=== PATIENT | male | born 1945 | race Caucasian/White ===

== ENCOUNTER 2019-09-29 00:25 | Outpatient (CLI) | payer MEDICARE, SELFPAY ==
[2019-09-30 00:19] LABS: SARS-CoV-2 RNA PCR Negative
== END 2019-09-29 00:26 | disposition home or self-care (01) ==
LOC: ANHCOVIDDT 00:25
PROVIDERS: PCP Family Medicine; Visit Provider Internal Medicine Gastroenterology
DX: Z20.828 Contact with and (suspected) exposure to other viral communicable diseases (principal)
CPT/HCPCS: 87635; C9803; U0003

== ENCOUNTER 2019-10-02 02:11 | Day surgery (SDC) | payer MEDICARE, SELFPAY ==
[2019-10-02 08:05] VITALS: BP 107/77; PULSE 60; RESP 18; TEMP 37.3; O2SAT 98; BMI 24.5
[2019-10-02] MEDS: LACTATED RINGERS 1,000 ML 150 ML IV CONT (08:15)
[2019-10-02 08:22] LABS: Glucose Point of Care 161 (65-105)
--- NOTE | 2019-10-02 08:33 | WPDGICN ---
Assessment and Plan Assessment and plan (1) Heartburn: Code(s): R12 - Heartburn Status: Acute (2) GERD (gastroesophageal reflux disease): Code(s): K21.9 - Gastro-esophageal reflux disease without esophagitis Status: Acute Assessment and Plan: Patient has chronic GE reflux disease plan is for EGD today because of ongoing symptoms of poor response disease therapy. (3) History of rectal cancer: Code(s): Z85.048 - Personal history of other malignant neoplasm of rectum, rectosigmoid junction, and anus Status: Acute Assessment and Plan: Colonoscopy advised at 3-5 year intervals. GI Consult Note Consult date/time: 10/02/19 08:33 HPI: Shane Pacheco is a 74 year old male seen in evaluation at the request of Dr Alvarez. Patient has a 2 year history of substernal heartburn. Particularly worse after eating spicy or acidic foods. He notices nocturnal regurgitation. Currently he takes Tums for relief of symptoms. He denies any dysphagia. He denies any bleeding. He denies any weight loss. Patient presents today for EGD because of ongoing symptoms. Past medical history is significant for colon cancer he is status post partial colectomy and has a colostomy in the left lower quadrant. This has been present 6 years ago. Additional past history is significant for diabetes mellitus. He has a history of atherosclerotic heart disease and stent placement for which she is on Plavix. Review of Systems Review of Systems: All systems reviewed & are unremarkable except as noted in HPI and below Meds Home Medications and Allergies Home Medications Medication Instructions Recorded Confirmed Type atorvastatin 10 mg PO DAILY 09/25/19 09/25/19 History carvedilol 12.5 mg PO DAILY 09/25/19 10/02/19 History clopidogrel 75 mg PO DAILY 09/25/19 10/02/19 History glipizide 5 mg PO DAILY 09/25/19 10/02/19 History losartan 100 mg PO DAILY 09/25/19 10/02/19 History metformin 1,000 mg PO BID 09/25/19 10/02/19 History sertraline 50 mg PO DAILY 09/25/19 10/02/19 History theophylline 400 mg PO DAILY 09/25/19 10/02/19 History Allergies Allergy/AdvReac Type Severity Reaction Status Date / Time aloe vera Allergy Intermediate Other Unverified 10/02/19 08:03 Vital Signs Vital Signs - 24 hr 10/02/19 08:05 Temperature 99.1 F Pulse Rate 60 Respiratory Rate 18 Blood Pressure 107/77 Pulse Oximetry 98 Exam Narrative: Exam Narrative: Physical exam reveals patient to be alert. Vital signs stable. HEENT exam unremarkable. Lungs are clear to auscultation and percussion. Heart is without murmur or extra sounds. Abdominal exam bowel sounds are present soft nontender with no hepatosplenomegaly. Colostomy site appears well healed.
--- NOTE | 2019-10-02 08:34 | WPDANESEPPF ---
Anes - Initial Pre Proc Eval Procedure: Operation Date: 10/02/19 09:00 Proposed Procedures p Esophagogastroduodenoscopy - Ehsan Allen MD Date/Time: 10/02/19 08:34 Surgeon: Ehsan Allen MD Pre Op Diagnosis: Heart Burn/ Anemia Patient Data Age: 74 Gender: M Height: 5 ft 6 in Weight: 69 kg Last Vital Signs Temp 37.3 C 10/02/19 08:05 Pulse 60 10/02/19 08:05 Resp 18 10/02/19 08:05 BP 107/77 10/02/19 08:05 Pulse Ox 98 10/02/19 08:05 Allergies Allergy/AdvReac Type Severity Reaction Status Date / Time aloe vera Allergy Intermediate Other Unverified 10/02/19 08:03 Home Medications Medication Instructions Recorded Confirmed Type atorvastatin 10 mg PO DAILY 09/25/19 09/25/19 History carvedilol 12.5 mg PO DAILY 09/25/19 10/02/19 History clopidogrel 75 mg PO DAILY 09/25/19 10/02/19 History glipizide 5 mg PO DAILY 09/25/19 10/02/19 History losartan 100 mg PO DAILY 09/25/19 10/02/19 History metformin 1,000 mg PO BID 09/25/19 10/02/19 History sertraline 50 mg PO DAILY 09/25/19 10/02/19 History theophylline 400 mg PO DAILY 09/25/19 10/02/19 History Laboratory Tests 10/02/19 08:18 POC Capillary Glucose 161 mg/dl H mg/dl (65-105) Patient hx anesthesia problems: none Family hx anesthesia problems: none Anes - Eval Final PreProcedure Day of Procedure 10/02/19 08:34 Patient weight: overweight Heart: regular rate and rhythm Lungs: clear to auscultation Airway: Mallampati scale class II Neurological: alert and oriented Last oral intake: >/= 8 hours ASA classification: III Emergent: no Anesthetic plan: proceed Anesthesia type and monitoring: general GIVS and standard monitoring Informed Consent: The patient's anesthetic plan and its attendant risks and benefits were discussed with the patient/family/POA. Questions were solicited and answers provided to the satisfaction of the patient/family/POA.
[2019-10-02] MEDS: BENZOCAINE (*SP) 60 ML SPRAY CAN (HURRICAINE) 1 SPRAY MUCOUS MEM (08:58)
[2019-10-02 09:12] VITALS: BP 79/45; PULSE 53; RESP 14; O2SAT 96
[2019-10-02 09:22] VITALS: BP 96/50; PULSE 53; RESP 16; O2SAT 97
[2019-10-02 09:32] VITALS: BP 125/61; PULSE 59; RESP 17; O2SAT 98
[2019-10-02 09:42] VITALS: BP 142/72; PULSE 55; RESP 15; O2SAT 97
== END 2019-10-02 09:53 | disposition home or self-care (01) ==
PROVIDERS: PCP Family Medicine; Visit Provider Internal Medicine Gastroenterology
PROC: 0DJ08ZZ Inspection of Upper Intestinal Tract, Via Natural or Artificial Opening Endoscopic (ICD-10-PCS; CPT 43235; principal; 2019-10-02 09:00)
DX: K22.70 Barrett's esophagus without dysplasia (principal); K21.9 Gastro-esophageal reflux disease without esophagitis; Z85.048 Personal history of other malignant neoplasm of rectum, rectosigmoid junction, and anus; Z79.02 Long term (current) use of antithrombotics/antiplatelets; Z79.84 Long term (current) use of oral hypoglycemic drugs
CPT/HCPCS: 43239; 88305; J2704; J7120

== ENCOUNTER 2019-11-08 13:17 | Outpatient (CLI) | payer MEDICARE, SELFPAY ==
--- NOTE | ~2019-11-08 | CT_ITS ---
EXAMINATION: CT abdomen pelvis w con EXAM DATE: 11/08/2019 13:55 INDICATION: Abdominal pain. History of colon cancer. TECHNIQUE: Spiral CT of the abdomen and pelvis was performed following intravenous injection of 100 m L Omnipaque 350. Axial, coronal and sagittal images were reviewed. The dose-length product (DLP) fo r this examination was 320.81 mGy-cm. The exposure was tailored according to patient size (auto mA e xposure control), and iterative reconstruction (ASIR) was used as additional dose reduction technique . Comparison is made to prior examination from 01/05/2018. FINDINGS: There is 1.4 cm lesion in the left adrenal gland, unchanged compared to prior examinations, most likely an adenoma given stability. The liver, spleen, adrenal glands and pancreas are otherwis e unremarkable. Gallbladder is moderately distended and there is a partially peripherally calcified 2 cm stone in its neck, which is the dependent portion. No surrounding inflammation, and no interval change compared to prior study. Portal and splenic veins are patent. Kidneys enhance symmetrically. There is no hydronephrosis. The prostate is unremarkable. The bladder is unremarkable. There is no retroperitoneal or pelvic lymphadenopathy. There is moderate scattered arteriosclerotic disease . The appendix is not positively visualized. There is no pericecal inflammatory change to suggest appe ndicitis. There is a 5 cm duodenal diverticulum along its 4th portion. Gordon's pouch, and left l ower quadrant colostomy. Some colonic fluid. No free intraperitoneal gas. The heart is normal in size. There are no pericardial or pleural effusions. The lung bases are unremarkable. There are no osteoblastic or osteolytic lesions identified. IMPRESSION: 1. No acute findings or evidence of metastatic disease. 2. Left adrenal lesion stable, probably adenoma. 3. Large duodenal diverticulum. 4. Cholelithiasis. Reviewed, dictated and finalized at location A.
[2019-11-08 13:47] LABS: Estimated Glomerular Filt Rate > 60
== END 2019-11-08 13:18 | disposition home or self-care (01) ==
PROVIDERS: PCP Family Medicine; Visit Provider Family Medicine
DX: R10.9 Unspecified abdominal pain (principal); Z85.048 Personal history of other malignant neoplasm of rectum, rectosigmoid junction, and anus; K80.20 Calculus of gallbladder without cholecystitis without obstruction; K57.10 Diverticulosis of small intestine without perforation or abscess without bleeding
CPT/HCPCS: 36415; 74177; Q9967

== ENCOUNTER 2020-01-19 12:33 | Outpatient (CLI) | payer MEDICARE, SELFPAY ==
--- NOTE | ~2020-01-19 | MR_ITS ---
EXAMINATION: MR brain/brain stem wo con DATE: 01/19/2020 13:55 INDICATION: Change in mental status. TECHNIQUE: Magnetic resonance imaging (MRI) of the brain and brainstem was performed without intraven ous contrast. Sequences included sagittal and axial T1-weighted FSE, axial diffusion-weighted FS EPI, axial T2*-weighted GRE, axial T2-weighted FLAIR Propeller, and axial T2-weighted Propeller. Apparent diffusion coefficient (ADC) maps were created. COMPARISON: None. FINDINGS: There is no intracranial hemorrhage, acute infarction, or abnormal intracranial mass lesion . There are scattered areas of nonspecific increased T2-weighted signal intensity in the cerebral whi te matter. The ventricles are normal in size. There is mild mucosal thickening in the paranasal sinus es. The orbits are normal. The mastoid air cells are normal. IMPRESSION: 1. Mild nonspecific cerebral white matter disease, which likely represents chronic small vessel ische cash disease. Reviewed, dictated and finalized at location A. IMPRESSION: 1. Mild nonspecific cerebral white matter disease, which likely represents engagement engineer lizette small vessel ischemic disease.
--- NOTE | ~2020-01-19 | XR_ITS ---
EXAMINATION: XR chest 2V DATE: 01/19/2020 13:08 INDICATION: Cough. TECHNIQUE: Frontal and lateral views of the chest were obtained. COMPARISON: Chest 2 views 06/09/2018, CT abdomen and pelvis 11/08/2019 FINDINGS: The chest demonstrates clear lungs without pneumonia, pleural effusion, or pneumothorax. Th e heart size is normal. IMPRESSION: 1. No acute cardiopulmonary disease. Reviewed, dictated and finalized at location A.
[2020-01-19 14:29] LABS: Hematocrit 35.1 % (42.0-52.0); Hemoglobin 11.9 g/dL (14.0-18.0); Mean Corpuscular HGB Conc 33.9 g/dl (32-36); Mean Corpuscular Hemoglobin 33.4 pg (26-34); Mean Corpuscular Volume 98.6 fl (80-100); Platelet Count Result 254 k/mm3 (150-375); Red Blood Count 3.56 M/mm3 (4.6-6.20); Red Cell Distribution Width 12.8 % (11.5-14.5); White Blood Count 9.1 K/mm3 (4.5-10.0)
[2020-01-19 14:46] LABS: Alanine Aminotransferase 20 U/L (4-50); Albumin Level 4.3 g/dL (3.5-5.1); Alkaline Phosphatase 81 U/L (38-126); Anion Gap 11 mmol/L (8-16); Aspartate Amino Transferase 32 U/L (17-59); Bilirubin,Total 0.5 mg/dL (0.2-1.3); Blood Urea Nitrogen 14 mg/dL (9-20); Calcium 9.5 mg/dL (8.4-10.2); Carbon Dioxide 27 mmol/L (22-30); Chloride 101 mmol/L (98-107); Cholesterol 187 mg/dL (0-200); Estimated Glomerular Filt Rate > 60; Glucose 192 mg/dL (75-110); HDL Direct 40 mg/dL; Potassium 5.1 mmol/L (3.4-5.0); Sodium 139 mmol/L (137-145); Triglycerides 304 mg/dL (<150)
[2020-01-19 14:53] LABS: LDL Cholesterol Direct 104 mg/dL
[2020-01-19 15:13] LABS: Prostate Specific Antigen 0.4 ng/mL (< OR = 4.0)
[2020-01-19 15:26] LABS: Vitamin D 25 Hydroxy 29.2 ng/mL
[2020-01-19 15:30] LABS: Hemoglobin A1C 7.8 % (<5.7)
== END 2020-01-19 12:34 | disposition home or self-care (01) ==
PROVIDERS: PCP Family Medicine; Visit Provider Family Medicine
DX: R05 Cough (principal); R41.82 Altered mental status, unspecified; E11.65 Type 2 diabetes mellitus with hyperglycemia; R53.83 Other fatigue; Z12.5 Encounter for screening for malignant neoplasm of prostate; R93.0 Abnormal findings on diagnostic imaging of skull and head, not elsewhere classified; D64.9 Anemia, unspecified
CPT/HCPCS: 36415; 70551; 71046; 80053; 80061; 82306; 82607; 83036; 84153; 84443; 85027; G0103

== ENCOUNTER 2020-04-05 13:46 | Outpatient (CLI) | payer MEDICARE, SELFPAY ==
[2020-04-05 15:19] LABS: Cholesterol 161 mg/dL (0-200); HDL Direct 29 mg/dL; Triglycerides 306 mg/dL (<150)
[2020-04-05 15:30] LABS: LDL Cholesterol Direct 89 mg/dL
[2020-04-05 19:52] LABS: Hemoglobin A1C 7.5 % (<5.7)
== END 2020-04-05 13:47 | disposition home or self-care (01) ==
LOC: ANHLAB 13:48
PROVIDERS: PCP Physician Assistant; Visit Provider Physician Assistant
DX: E78.5 Hyperlipidemia, unspecified (principal); E11.65 Type 2 diabetes mellitus with hyperglycemia; R60.0 Localized edema
CPT/HCPCS: 36415; 80061; 83036

== ENCOUNTER 2020-12-23 14:47 | Emergency (ER) | payer MEDICARE, SELFPAY ==
[2020-12-23 15:00] VITALS: BP 119/77; PULSE 61; RESP 18; TEMP 36.2; O2SAT 98
[2020-12-23 15:06] VITALS: BP 119/77; PULSE 61; RESP 18; TEMP 36.2; O2SAT 98
--- NOTE | 2020-12-23 15:10 | ED.SKABFB ---
HPI - Skin/Abscess/Foreign Bdy General Chief complaint: Skin/Abscess/Foreign Body Stated complaint: Skin Tear Source: patient and RN notes reviewed Limitations: no limitations History of Present Illness HPI narrative: The patient, on several meds including for dementia, presents with skin avulsion. Patient states family members heard the patient to slip, without fall probably involving on home furnishings. He complains of minimal bleeding and discomfort from a left forearm avulsion. No other injury, decreased range of motion, bleeding, deformity; symptoms are mild, better with elevation or compression. thinks tetanus is up-to-date as he has a primary physician. Related Data Home Medications Medication Instructions Recorded Confirmed atorvastatin 10 mg PO DAILY 09/25/19 12/23/20 carvedilol 12.5 mg PO DAILY 09/25/19 12/23/20 clopidogrel 75 mg PO DAILY 09/25/19 12/23/20 losartan 100 mg PO DAILY 09/25/19 12/23/20 metformin 1,000 mg PO BID 09/25/19 12/23/20 sertraline 50 mg PO DAILY 09/25/19 12/23/20 theophylline 400 mg PO DAILY 09/25/19 12/23/20 aspirin 81 mg tablet,delayed 81 mg PO DAILY 10/07/20 12/23/20 release diphenhydramine 25 2 tablet PO QHS PRN tablet 10/07/20 12/23/20 mg-acetaminophen 500 mg tablet donepezil 10 mg tablet 10 mg PO DAILY tablet 10/07/20 12/23/20 glipizide 5 mg tablet 5 mg PO BID tablet 10/07/20 12/23/20 multivitamin 1 tablet PO DAILY 10/07/20 12/23/20 omeprazole 20 mg tablet,delayed 20 mg PO DAILY 10/07/20 12/23/20 release Allergies Allergy/AdvReac Type Severity Reaction Status Date / Time aloe vera Allergy Intermediate Other Verified 10/07/20 16:26 Review of Systems Review of Systems: General/Constitutional: No weight loss,fever Eyes: N0: Redness,discharge Ears/Nose/Throat: No: Epistaxis,ear discharge Respiratory: Denies: Hemoptysis Gastrointestinal: No Vomiting, Bleeding-rectal Skin: No Lumps, eruption Neurologic: No Focal Weakness,Sz Hematologic: Denies: Petechiae/Purpura Psychiatric: No: Suicida ideationl All Other Systems: Reviewed and Negative [facility] Social History Social History Smoking status: Current every day smoker Tobacco type: cigarettes Alcohol intake: current Alcohol use details: He states he drinks beer and 1/2 per month. Comments At time of signature, agree with nursing past medical, surgical, social and family history. There is no relevant family history pertinent to the presenting complaint Exam Narrative: General Appearance: Well appearing, Conjunctiva clear Ears: External ear normal, Auditory canal normal Neck: Supple Respiratory: Airway patent, No respiratory distress MS- forearm: Normal strength (mostly intact, unlimited flexion/extension, Tenderness , laterally, with mild decreased ROM), no swelling , Other (no anterior drawer, no collateral laxity) Skin: Warm, Dry, Normal color ; thumb sized and shaped skin avulsion left proximal forearm Neurological: Awake and alert; pleasantly demented/normal affect Course Vital Signs Vital signs: Vital Signs Temperature 97.2 F L 12/23/20 15:00 Pulse Rate 61 12/23/20 15:00 Respiratory Rate 18 12/23/20 15:00 Blood Pressure 119/77 12/23/20 15:00 Pulse Oximetry 98 12/23/20 15:00 Temperature 97.2 F L 12/23/20 15:06 Pulse Rate 61 12/23/20 15:06 Respiratory Rate 18 12/23/20 15:06 Blood Pressure 119/77 12/23/20 15:06 Pulse Oximetry 98 12/23/20 15:06 Discharge Plan Discharge Clinical Impression: Avulsion of skin of forearm Qualifiers: Encounter type: initial encounter Laterality: left Qualified Code(s): S51.802A - Unspecified open wound of left forearm, initial encounter Patient Disposition: Home, Self-Care Condition: Improved Instructions: Skin Avulsion (ED) Prescriptions: New mupirocin 2 % ointment 1 applic TOPICAL TID Qty: 30 RF: 0 No Action donepezil 10 mg tablet 10 m
== END 2020-12-23 15:15 | disposition home or self-care (01) ==
PROVIDERS: Emergency Provider Emergency Medicine; PCP Physician Assistant
DX: S51.802A Unspecified open wound of left forearm, initial encounter (principal); F17.200 Nicotine dependence, unspecified, uncomplicated; Z79.82 Long term (current) use of aspirin; W18.40XA Slipping, tripping and stumbling without falling, unspecified, initial encounter
CPT/HCPCS: 99213; G0463

== ENCOUNTER 2021-05-07 13:03 | Observation (INO) | payer MEDICARE, SELFPAY ==
--- NOTE | ~2021-05-07 | XR_ITS ---
EXAMINATION: XR knee RT 3V DATE: 05/07/2021 14:48 INDICATION: Right knee swelling and limited range of motion post fall TECHNIQUE: Anteroposterior, oblique and crosstable lateral views of the right knee were obtained COMPARISON: None. FINDINGS: Alignment is normal. No fracture. Mild joint space narrowing the medial compartment and small margin al osteophytes at the lateral and patellofemoral compartments consistent with at least mild tricompar tmental osteoarthritis. Severe joint space narrowing can however be underestimated on nonweightbearin g imaging. Mild soft tissue swelling about the anteromedial aspect of the right knee. Small right kne e joint effusion without layering lipohemarthrosis. IMPRESSION: 1. 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 No fracture or other acute osseou s abnormality. Reviewed, dictated and finalized at location A. FING RN IMPRESSION: 1. 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 No fracture or other acute osseous abnormality.
--- NOTE | ~2021-05-07 | XR_ITS ---
EXAMINATION: XR ankle RT min 3V EXAM DATE: 05/07/2021 14:48 INDICATION: Initial encounter following injury, with pain of the right ankle. TECHNIQUE: Right ankle frontal, lateral and oblique projections obtained and reviewed. There is no p rior study for comparison. FINDINGS: The right ankle mortise appears intact. There are no acute fractures or dislocations iden tified. There is no subcutaneous gas. The soft tissue is unremarkable. There are no radiopaque fo reign bodies. IMPRESSION: 1. XR ankle RT min 3V exam without acute osseous findings. Reviewed, dictated and finalized at location B. ER RACKER
--- NOTE | ~2021-05-07 | CT_ITS ---
EXAMINATION: CT brain wo con DATE: 05/08/2021 09:50 INDICATION: Confusion. Fall. TECHNIQUE: Computed tomography (CT) of the head was performed without intravenous contrast. Sagittal and coronal reconstructions were performed. The mA was adjusted according to patient size. Iterative reconstruction technique was employed. The dose-length product was 605.33 mGy-cm. COMPARISON: Brain MR dated 01/19/2020 FINDINGS: No fracture. No acute intracranial hemorrhage, acute infarction or abnormal extra axial fluid collect ion. There is mild to moderate scattered white matter hypoattenuation consistent with chronic small v essel ischemic disease. Symmetric prominence of the sulci and ventricles consistent with mild age-dhaval ropriate diffuse cerebral volume loss. No mass/mass effect. Mild mucosal thickening in the right maxi llary and bilateral ethmoid sinuses. The orbits, paranasal sinuses and mastoid air cells are normal. IMPRESSION: 1. No fracture or acute intracranial process. 2. Age-related changes including moderate diffuse volume loss and mild to moderate scattered white ma tter hypoattenuation consistent with chronic small vessel ischemic disease. Reviewed, dictated and finalized at location A. R RESOURCES PROJECT MANAGER IMPRESSION: 1. No fracture or acute intracranial process. 2. Age-related changes including moderate diffuse volume loss and mild to moder ate scattered white matter hypoattenuation consistent with chronic small vessel ischemic disease.
--- NOTE | ~2021-05-07 | XR_ITS ---
EXAMINATION: XR chest 1V portable DATE: 05/07/2021 16:57 INDICATION: Transient alteration of awareness. Weakness. TECHNIQUE: A single frontal view of the chest was obtained. COMPARISON: Chest 2 views 01/19/2020, CT abdomen and pelvis 09/08/2019, chest CT 01/05/2018 FINDINGS: The chest demonstrates clear lungs without pneumonia, pleural effusion, or pneumothorax. Th e heart size is normal. IMPRESSION: 1. No acute cardiopulmonary disease. Reviewed, dictated and finalized at location E. SCAN TECHNOLOGIST
[2021-05-07 13:06] VITALS: BP 139/76; PULSE 73; RESP 18; TEMP 36.3; O2SAT 100
--- NOTE | 2021-05-07 14:43 | ED.GENADULT ---
HPI - General Adult General Chief complaint: Fall Stated complaint: FALL Time Seen by Provider: 05/07/21 13:27 Source: patient and family () Mode of arrival: EMS Limitations: dementia History of Present Illness HPI narrative: Patient is a 76-year-old male with progressive Alzheimer's disease presented with inability to ambulate since yesterday. Patient reports that he fell onto the anterior aspect of his knees. She reports that he was walking but limping yesterday and she applied ice. She reports that she got the swelling improved, but today the patient was yelling whenever she attempted to help him with ambulating. She reports that the patient noted pain to the right knee and ankle. She states she was confused as she denies seeing any bruising. She reports the patient has had some decrease in mobility recently. She denies any signs of infections, fevers, chills, cough, shortness of breath, nausea or vomiting. She denies any known recent illnesses. Related Data Home Medications Medication Instructions Recorded Confirmed atorvastatin 20 mg PO HS 09/25/19 05/07/21 carvedilol 12.5 mg PO BID 09/25/19 05/07/21 clopidogrel 75 mg PO DAILY 09/25/19 05/07/21 losartan 100 mg PO DAILY 09/25/19 05/07/21 metformin 1,000 mg PO BID 09/25/19 05/07/21 sertraline 50 mg PO HS 09/25/19 05/07/21 theophylline 400 mg PO DAILY 09/25/19 05/07/21 aspirin 81 mg tablet,delayed 81 mg PO DAILY 10/07/20 05/07/21 release donepezil 10 mg tablet 10 mg PO HS tablet 10/07/20 05/07/21 glipizide 5 mg tablet 5 mg PO BID tablet 10/07/20 05/07/21 multivitamin 1 tablet PO DAILY 10/07/20 05/07/21 omeprazole 20 mg tablet,delayed 20 mg PO DAILY 10/07/20 05/07/21 release melatonin 5 mg PO HS 05/07/21 05/07/21 Allergies Allergy/AdvReac Type Severity Reaction Status Date / Time aloe vera Allergy Intermediate Other Verified 10/07/20 16:26 Review of Systems Review of Systems: CONSTITUTIONAL: Denies fever, chills, or sweats. EYES: Denies visual changes, redness, or discharge. ENT: Denies rhinorrhea, congestion, sore throat, or otalgia. CARDIOVASCULAR: Denies chest pain, palpitations, or edema. RESPIRATORY: Denies cough or dyspnea. GASTROINTESTINAL: Denies abdominal pain, nausea, vomiting, or diarrhea. GENITOURINARY: Denies dysuria or hematuria. SKIN: Denies rash or itching. MUSCULOSKELETAL: Reports right knee and ankle pain denies back pain, joint pain, or myalgia. NEUROLOGIC: Denies headache, numbness, dizziness, or weakness. PSYCHIATRIC: Denies anxiety or depression. [facility] Social History Social History Smoking status: Current every day smoker Tobacco type: cigarettes Alcohol intake: current Alcohol use details: He states he drinks beer and 1/2 per month. Exam Narrative: GENERAL: Well-appearing, well-nourished, and in no acute distress. HEAD: Normocephalic, atraumatic. EYES: PERRLA and EOMI. ENT: Nares clear, no rhinorrhea or epistaxis. Mucous membranes moist. NECK: Supple. ROM intact. CHEST: Clear to auscultation. No respiratory distress. No wheezes rales or rhonchi HEART: Regular rate and rhythm. No murmur heard. Normal peripheral pulses. ABDOMEN: Soft, nontender, nondistended, colostomy bag noted. EXTREMITIES: Slight swelling to patient right knee. No bruises noted. Patients lower extremities stiffened. SKIN: Warm, dry, no rash. NEURO: No focal deficits. Alert to self. Can not recall events of injury. follows some commands. reports its patient's baseline. PSYCH: Normal mood and affect. Course Vital Signs Vital signs: Vital Signs Temperature 97.3 F L 05/07/21 13:06 Pulse Rate 73 05/07/21 13:06 Respiratory Rate 18 05/07/21 13:06 Blood Pressure 139/76 05/07/21 13:06 Pulse Oximetry 100 05/07/21 13:06 Temperature 98.1 F 05/07/21 16:23 Pulse Rate 71 05/07/21 16:23 Respiratory Rate 14 05/07/21 16:23 Blood Pressure 148/76 H 05/07/21 16:23
[2021-05-07 16:23] VITALS: BP 148/76; PULSE 71; RESP 14; TEMP 36.7; O2SAT 100
[2021-05-07 17:52] LABS: Basophils Absolute Auto 0.1 K/mm3 (0.0-0.1); Basophils Percent Auto 0.6 % (0.2-1.2); Eosinophils Absolute Auto 0.4 K/mm3 (0-0.3); Eosinophils Percent Auto 4.2 % (0-4.4); Hematocrit 30.5 % (42.0-52.0); Immature Granulocyte Absolute 0.02 K/mm3 (0.00-0.031); Immature Granulocyte Percent A 0.2 % (0-0.5); Lymphocytes Absolute Auto 1.53 K/mm3 (0.9-3.2); Lymphocytes Percent Auto 17.2 % (18.3-44.2); Mean Corpuscular HGB Conc 32.8 g/dl (32-36); Mean Corpuscular Hemoglobin 31.8 pg (26-34); Mean Corpuscular Volume 97.1 fl (80-100); Mean Platelet Volume 8.9 fl (7.4-10.4); Monocytes Absolute Auto 1.1 K/mm3 (0.1-0.6); Monocytes Percent Auto 12.4 % (2.6-8.5); Neutrophils Absolute Auto 5.8 K/mm3 (1.3-6.7); Neutrophils Percent Auto 65.4 % (45.5-73.1); Platelet Count Result 376 k/mm3 (150-375); Red Blood Count 3.14 M/mm3 (4.6-6.20); White Blood Count 8.9 K/mm3 (4.5-10.0)
[2021-05-07 18:02] LABS: Alanine Aminotransferase 14 U/L (4-50); Albumin Level 3.9 g/dL (3.5-5.1); Alkaline Phosphatase 122 U/L (38-126); Anion Gap 7 mmol/L (8-16); Aspartate Amino Transferase 25 U/L (17-59); Bilirubin,Total 0.5 mg/dL (0.2-1.3); Blood Urea Nitrogen 17 mg/dL (9-20); Calcium 9.4 mg/dL (8.4-10.2); Carbon Dioxide 27 mmol/L (22-30); Chloride 105 mmol/L (98-107); Estimated CRCL calculation 44 ml/min; Estimated Glomerular Filt Rate 59; Glucose 185 mg/dL (65-110); Potassium 4.4 mmol/L (3.4-5.0); Sodium 139 mmol/L (137-145)
--- NOTE | 2021-05-07 19:56 | PCCCNOTE ---
Called by bedside RN Nahomi to meet with ,. Met with at bedside she is very tearful and exhausted. Patient has dementia/ alztheimers, and is caregiver. She also takes care of children that live in her home also. Patient attends [facility] 3-4 hours per week. Patient has a colostomy and is incontinent with recent decrease in mobility. states that she cannot take care of him if unable to ambulate. RNs tried to get assist with walking and patient was unable. reports many barriers to placement, patient does not qualify for medicaid and she cannot sell their house since she is the sole provider for children in home. continues to cry. JAYA Geiger at bedside and advises of observation admission, PT/OT order will be placed. outpatient program coordinator states we can try for SNF placement but it would have to be approved by [facility]. would like to try. printed list of [facility] SNF facilities for to review. Advised to pick 3 choices. is still tearful, and wants to look at them at home. outpatient program coordinator asks Yulia about her support system, she states that she can talk with her sister and her PCP works closely with her. The [facility] is very supportive and has a women's group that she can participate with. OBRA request called in.
[2021-05-07 20:05] LABS: Add Urine Microscopic? YES; Appearance Urine Clear (Clear); Bilirubin Urine Negative (Negative); Blood Urine Negative (Negative); Color Urine Straw (Yellow); Glucose Urine UA 1+ mg/dL (Negative); Ketones Urine Trace mg/dL (Negative); Leukocyte Esterase Ur Negative LEU/UL (Negative); Nitrate Urine Negative (Negative); Protein Urine 3+ mg/dL (Negative); RBC Urine 0-2 /hpf (0-2); Specific Grav Ur 1.014 (1.001-1.035); Urobilinogen Urine Negative mg/dL (<2.0); WBC Urine 0-3 /hpf
[2021-05-07 21:00] LABS: SARS-CoV-2 RNA PCR Positive
[2021-05-07 22:13] VITALS: BP 215/95; PULSE 81; RESP 16; O2SAT 99
[2021-05-07 22:45] VITALS: BP 237/110; PULSE 75; RESP 18; TEMP 36.9; O2SAT 97; BMI 21.8
--- NOTE | 2021-05-07 23:11 | PC.NURSE ---
2305: Spoke verbally with MD Zavala regarding pts blood pressure. MD Zavala said he did not admit this patient. Called JAYA Hathaway regarding pts blood pressure. JAYA Hathaway said she did not admit this patient although the reports have her listed that she has been consulted. JAYA Hathaway said she was going to make some phone calls and call me back. 2318: JAYA Hathaway called back regarding pt. JAYA Hathaway said she would put orderings in.
--- NOTE | 2021-05-07 23:44 | PC.NURSE ---
2342: Called pharmacy and spoke with Pharmacist Hasmukh to get pts medications to treat elevated blood pressure. Pharmacist Hasmukh said medications will be tubed up shortly.
--- NOTE | 2021-05-07 23:51 | ADMGEN ---
This patient, Shane Pacheco, was admitted to [facility] Surg Room 332-01. Patient/family oriented to hospital policies and general routines including ID bracelet, bed and alarms, visiting hours, pain management, procedures, bathroom and other care routines, personal items, smoking policy, room service/diet, and visiting hours. Information on how to activate the Rapid Response Team has been discussed. Patient/Family are encouraged to report perceived risks to care and to ask questions if they do not understand what they are told or what they should do.
[2021-05-08] VITALS (8 sets, daily range): BP systolic 156–172; BP diastolic 55–78; PULSE 65–84; RESP 18; TEMP 36.3–36.7; O2SAT 93–98; BMI 21.8
[2021-05-08] MEDS: SERTRALINE HCL 50 MG TABLET PO ×2 (00:33→21:02)
[2021-05-08] MEDS: MELATONIN 5 MG TABLET PO ×2 (00:33→21:01)
[2021-05-08] MEDS: ATORVASTATIN 10 MG TABLET 20 MG PO ×2 (00:33→21:01)
[2021-05-08] MEDS: carvediloL 12.5 MG TABLET PO ×3 (00:33→21:01)
--- NOTE | 2021-05-08 02:47 | PM.IMHP ---
H&P: HPI History of Present Illness Date/Time: 05/08/21 02:47 Chief Complaint: Fall confusion weakness Narrative: Patient is a 76-year-old male with progressive Alzheimer's disease who presented to the ED after a fall onto his knees earlier yesterday. He had put ice on it and the swelling has improved but has been difficult to ambulate. He has also been noted to be more confused and had generalized weakness. He is thus brought to the ED for evaluation by his who is his primary jacket preparer. He has underlying dementia and not able to answer most of my questions. He remains pleasantly confused during the visit. He is slow to respond to any of my questions and also goes tangentially. There has been no report of fever chills cough shortness of breath nausea vomiting. He did test positive for COVID since mid March and swab in the ER continued to test positive again. He had a chest x-ray done in the ER which revealed no acute cardiopulmonary disease. He refused to get a CT head in the ER according to the notes available. Due to ongoing confusion and weakness admission and possible placement was advised. has noted that she has not been able to take care of him lately. Review of Systems Review of Systems: ROS unobtainable: Yes unobtainable due to medical condition and unobtainable due to mental status [facility] Family History Family History (Updated 05/07/21 @ 22:56 by Marianna Kiser RN) Other Unknown family medical history Social History Social History Smoking status: Current some day smoker Tobacco type: cigarettes Additional smoking assessment comments: 1 a week Alcohol intake: never Alcohol use details: He states he drinks beer and 1/2 per month. Substance use: never Substance use type: does not use Spiritual care concerns: No Meds Home Medications and Allergies Home Medications Medication Instructions Recorded Confirmed Type atorvastatin 20 mg PO HS 09/25/19 05/07/21 History carvedilol 12.5 mg PO BID 09/25/19 05/07/21 History clopidogrel 75 mg PO DAILY 09/25/19 05/07/21 History losartan 100 mg PO DAILY 09/25/19 05/07/21 History metformin 1,000 mg PO BID 09/25/19 05/07/21 History sertraline 50 mg PO HS 09/25/19 05/07/21 History theophylline 400 mg PO DAILY 09/25/19 05/07/21 History aspirin 81 mg tablet,delayed 81 mg PO DAILY 10/07/20 05/07/21 History release donepezil 10 mg tablet 10 mg PO HS tablet 10/07/20 05/07/21 History glipizide 5 mg tablet 5 mg PO BID tablet 10/07/20 05/07/21 History multivitamin 1 tablet PO DAILY 10/07/20 05/07/21 History omeprazole 20 mg tablet,delayed 20 mg PO DAILY 10/07/20 05/07/21 History release melatonin 5 mg PO HS 05/07/21 05/07/21 History Allergies Allergy/AdvReac Type Severity Reaction Status Date / Time aloe vera Allergy Intermediate Other Verified 10/07/20 16:26 Vital Signs Vital Signs - 24 hr 05/07/21 13:06 05/07/21 16:23 05/07/21 22:13 Temperature 97.3 F L 98.1 F Pulse Rate 73 71 81 Respiratory Rate 18 14 16 Blood Pressure 139/76 148/76 H 215/95 H Pulse Oximetry 100 100 99 05/07/21 22:45 05/08/21 00:33 05/08/21 02:13 Temperature 98.5 F Pulse Rate 75 74 Respiratory Rate 18 Blood Pressure 237/110 H 163/56 H Pulse Oximetry 97 Exam Narrative: GENERAL: Well-appearing, well-nourished, and in no acute distress. HEAD: Normocephalic, atraumatic. EYES: PERRLA and EOMI. ENT: Nares clear, no rhinorrhea or epistaxis. Mucous membranes moist. NECK: Supple. ROM intact. CHEST: Clear to auscultation. No respiratory distress. No wheezes rales or rhonchi HEART: Regular rate and rhythm. No murmur heard. Normal peripheral pulses. ABDOMEN: Soft, nontender, nondistended, colostomy bag noted. EXTREMITIES: No edema cyanosis or clubbing SKIN: Warm, dry, no rash. NEURO: No focal deficits. Alert to self. Pleasantly confused follow some commands PSYCH: Normal mood and affect.
[2021-05-08 07:15] LABS: Alanine Aminotransferase 11 U/L (4-50); Albumin Level 3.2 g/dL (3.5-5.1); Alkaline Phosphatase 99 U/L (38-126); Anion Gap 6 mmol/L (8-16); Aspartate Amino Transferase 26 U/L (17-59); Bilirubin,Total 0.3 mg/dL (0.2-1.3); Blood Urea Nitrogen 16 mg/dL (9-20); Calcium 8.8 mg/dL (8.4-10.2); Carbon Dioxide 26 mmol/L (22-30); Chloride 102 mmol/L (98-107); Estimated CRCL calculation 39 ml/min; Estimated Glomerular Filt Rate 54; Glucose 203 mg/dL (65-110); Sodium 134 mmol/L (137-145)
[2021-05-08 07:17] LABS: Basophils Absolute Auto 0.1 K/mm3 (0.0-0.1); Basophils Percent Auto 0.8 % (0.2-1.2); Eosinophils Absolute Auto 0.5 K/mm3 (0-0.3); Immature Granulocyte Absolute 0.04 K/mm3 (0.00-0.031); Immature Granulocyte Percent A 0.5 % (0-0.5); Lymphocytes Absolute Auto 1.62 K/mm3 (0.9-3.2); Lymphocytes Percent Auto 21.3 % (18.3-44.2); Mean Corpuscular HGB Conc 32.1 g/dl (32-36); Mean Corpuscular Hemoglobin 31.7 pg (26-34); Mean Corpuscular Volume 98.6 fl (80-100); Mean Platelet Volume 8.8 fl (7.4-10.4); Monocytes Percent Auto 13.6 % (2.6-8.5); Neutrophils Absolute Auto 4.3 K/mm3 (1.3-6.7); Neutrophils Percent Auto 56.8 % (45.5-73.1); Platelet Count Result 294 k/mm3 (150-375); Red Blood Count 2.84 M/mm3 (4.6-6.20); White Blood Count 7.6 K/mm3 (4.5-10.0)
[2021-05-08] MEDS: CLOPIDOGREL BISULFATE 75 MG TABLET PO (08:46)
[2021-05-08] MEDS: ASPIRIN 81 MG ENTERIC TABLET PO (08:46)
[2021-05-08] MEDS: MULTIVITAMINS THERAPEUTIC TAB (*BKC) 1 TABLET PO (08:46)
[2021-05-08] MEDS: PANTOPRAZOLE 40 MG TABLET PO (08:46)
[2021-05-08] MEDS: THEOPHYLLINE ANHYDROUS 200 MG ER 24 HR CAPSULE 400 MG PO (08:46)
[2021-05-08] MEDS: ENOXAPARIN 40 MG/0.4 ML SYRINGE SUB-Q (08:47)
[2021-05-08] MEDS: LOSARTAN POTASSIUM 100 MG TABLET PO (08:47)
[2021-05-08 09:52] LABS: Glucose Point of Care 190 mg/dl (65-105)
--- NOTE | 2021-05-08 10:20 | PC.NURSE ---
returned 's call and updated her on pt condition and plan of care
[2021-05-08 11:41] LABS: Glucose Point of Care 188 mg/dl (65-105)
--- NOTE | 2021-05-08 13:37 | PM.IMPN ---
Progress Note: A&P Assessment and Plan (1) Inability to ambulate due to knee: Code(s): R26.2 - Difficulty in walking, not elsewhere classified Status: Acute (2) COVID: Code(s): U07.1 - COVID-19 Status: Acute (3) Dementia of the Alzheimer's type: Qualifiers: Alzheimer's disease onset: unspecified onset Dementia behavioral disturbance: without behavioral disturbance Qualified Code(s): G30.9 - Alzheimer's disease, unspecified; F02.80 - Dementia in other diseases classified elsewhere without behavioral disturbance Code(s): G30.9 - Alzheimer's disease, unspecified; F02.80 - Dementia in other diseases classified elsewhere without behavioral disturbance Status: Acute (4) History of rectal cancer: Code(s): Z85.048 - Personal history of other malignant neoplasm of rectum, rectosigmoid junction, and anus Status: Acute (5) GERD (gastroesophageal reflux disease): Code(s): K21.9 - Gastro-esophageal reflux disease without esophagitis Status: Acute (6) Heartburn: Code(s): R12 - Heartburn Status: Acute Additional Plan # fall no reported head injury, refuse CT scan of the head. With some worsening confusion will get CT head ordered. Other traumatic workup with x-ray knee and ankle with no bony injuries. # acute COVID infection since mid March swab still positive chest x-rays negative no hypoxia noted. Will continue to monitor no acute indication of starting Decadron or remdesivir. He is out of the window for remdesivir. # chronic anemia no signs of bleeding continue to monitor # altered mental status unknown baseline he might be pretty much at his baseline. CT head will be done. No other signs of infections noted # Diabetes mellitus type 2 SSI hold glipizide # hypertension uncontrolled on admission resume his home medication. As he has not received his regular home medication yesterday # Hyperlipidemia home medication # dementia progressive resume home medication # DVT prophylaxis Lovenox # code status full code HPI:Narrative: Patient is a 76-year-old male with progressive Alzheimer's disease who presented to the ED after a fall onto his knees earlier yesterday. He had put ice on it and the swelling has improved but has been difficult to ambulate. He has also been noted to be more confused and had generalized weakness. He is thus brought to the ED for evaluation by his who is his primary conductor pullman. He has underlying dementia and not able to answer most of my questions. He remains pleasantly confused during the visit. He is slow to respond to any of my questions and also goes tangentially. There has been no report of fever chills cough shortness of breath nausea vomiting. He did test positive for COVID since mid March and swab in the ER continued to test positive again. He had a chest x-ray done in the ER which revealed no acute cardiopulmonary disease. He refused to get a CT head in the ER according to the notes available. Due to ongoing confusion and weakness admission and possible placement was advised. has noted that she has not been able to take care of him lately. 05/08/2021 Interval history: Patient was severe dementia and confusion patient is a COVID positive, he was positive in March, is clinically stable he has no symptoms and no acute need to start dexamethasone and his way out remdesivir treatment, will continue to monitor will have a PT OT evaluate the patient, nonprofit manager working on a placement as patient's is unable to to take care of him. Subjective Date/time seen: 05/08/21 13:37 Chief Complaint: Fall confusion weakness HPI:Narrative: Patient is a 76-year-old male with progressive Alzheimer's disease who presented to the ED after a fall onto his knees earlier yesterday. He had put ice on it and the swelling has improved but has been difficult to ambulate. He has also been noted to be more confused and had generalized weakness.
--- NOTE | 2021-05-08 15:33 | PCOTNOTE ---
Attempted to evaluated pt. for occupational therapy. Pt. declined to get out of bed with multiple attempts and explanations for purpose of evaluation.
[2021-05-08 16:23] LABS: Glucose Point of Care 297 mg/dl (65-105)
[2021-05-08] MEDS: INSULIN ASPART (*BKC) 100 UNITS/ML SUB-Q (16:59)
[2021-05-08] MEDS: glipiZIDE 5 MG TABLET PO (17:08)
[2021-05-08] MEDS: DONEPEZIL HCL 10 MG TABLET PO (21:01)
[2021-05-08] MEDS: hydrALAZINE HCL 20 MG/ML VIAL 10 MG IV PUSH (21:03)
[2021-05-08 21:16] LABS: Glucose Point of Care 164 mg/dl (65-105)
[2021-05-09] VITALS (7 sets, daily range): BP systolic 137–182; BP diastolic 51–76; PULSE 62–78; RESP 16–18; TEMP 35.9–36.3; O2SAT 93–98
[2021-05-09] MEDS: hydrALAZINE HCL 20 MG/ML VIAL 10 MG IV PUSH (05:15)
[2021-05-09 07:41] LABS: Glucose Point of Care 237 mg/dl (65-105)
[2021-05-09] MEDS: PANTOPRAZOLE 40 MG TABLET PO (08:39)
[2021-05-09] MEDS: carvediloL 12.5 MG TABLET PO (08:39)
[2021-05-09] MEDS: THEOPHYLLINE ANHYDROUS 200 MG ER 24 HR CAPSULE 400 MG PO (08:39)
[2021-05-09] MEDS: MULTIVITAMINS THERAPEUTIC TAB (*BKC) 1 TABLET PO (08:39)
[2021-05-09] MEDS: LOSARTAN POTASSIUM 100 MG TABLET PO (08:39)
[2021-05-09] MEDS: CLOPIDOGREL BISULFATE 75 MG TABLET PO (08:39)
[2021-05-09] MEDS: ENOXAPARIN 40 MG/0.4 ML SYRINGE SUB-Q (08:39)
[2021-05-09] MEDS: ASPIRIN 81 MG ENTERIC TABLET PO (08:39)
[2021-05-09] MEDS: INSULIN ASPART (*BKC) 100 UNITS/ML SUB-Q ×2 (08:40→17:10)
[2021-05-09 12:22] LABS: Glucose Point of Care 176 mg/dl (65-105)
--- NOTE | 2021-05-09 15:08 | PM.IMPN ---
Progress Note: A&P Assessment and Plan (1) Inability to ambulate due to knee: Code(s): R26.2 - Difficulty in walking, not elsewhere classified Status: Acute (2) COVID: Code(s): U07.1 - COVID-19 Status: Acute (3) Dementia of the Alzheimer's type: Qualifiers: Alzheimer's disease onset: unspecified onset Dementia behavioral disturbance: without behavioral disturbance Qualified Code(s): G30.9 - Alzheimer's disease, unspecified; F02.80 - Dementia in other diseases classified elsewhere without behavioral disturbance Code(s): G30.9 - Alzheimer's disease, unspecified; F02.80 - Dementia in other diseases classified elsewhere without behavioral disturbance Status: Acute (4) History of rectal cancer: Code(s): Z85.048 - Personal history of other malignant neoplasm of rectum, rectosigmoid junction, and anus Status: Acute (5) GERD (gastroesophageal reflux disease): Code(s): K21.9 - Gastro-esophageal reflux disease without esophagitis Status: Acute (6) Heartburn: Code(s): R12 - Heartburn Status: Acute Additional Plan # fall no reported head injury, refuse CT scan of the head. With some worsening confusion CT head reordered which is reviewed and has no acute findings. Other traumatic workup with x-ray knee and ankle with no bony injuries. # acute COVID infection since mid March swab still positive chest x-rays negative no hypoxia noted. Will continue to monitor no acute indication of starting Decadron or remdesivir. He is out of the window for remdesivir. # chronic anemia no signs of bleeding continue to monitor # altered mental status unknown baseline he might be pretty much at his baseline. CT head will be done. No other signs of infections noted # Diabetes mellitus type 2 SSI hold glipizide # hypertension uncontrolled on admission resume his home medication. As he has not received his regular home medication yesterday. Pressure much more controlled now # Hyperlipidemia home medication # dementia progressive resume home medication # DVT prophylaxis Lovenox # code status full code # disposition 's store detective not able to take care of him needs placement care coordination consultation Subjective Date/time seen: 05/09/21 15:08 Interval history: HPI:Narrative: Patient is a 76-year-old male with progressive Alzheimer's disease who presented to the ED after a fall onto his knees earlier yesterday. He had put ice on it and the swelling has improved but has been difficult to ambulate. He has also been noted to be more confused and had generalized weakness. He is thus brought to the ED for evaluation by his who is his primary store detective. He has underlying dementia and not able to answer most of my questions. He remains pleasantly confused during the visit. He is slow to respond to any of my questions and also goes tangentially. There has been no report of fever chills cough shortness of breath nausea vomiting. He did test positive for COVID since mid March and swab in the ER continued to test positive again. He had a chest x-ray done in the ER which revealed no acute cardiopulmonary disease. He refused to get a CT head in the ER according to the notes available. Due to ongoing confusion and weakness admission and possible placement was advised. has noted that she has not been able to take care of him lately. 05/08/2021 Interval history: Patient was severe dementia and confusion patient is a COVID positive, he was positive in March, is clinically stable he has no symptoms and no acute need to start dexamethasone and his way out remdesivir treatment, will continue to monitor will have a PT OT evaluate the patient, sheet manager working on a placement as patient's is unable to to take care of him. 05/09/2021 no overnight events. He denies any symptoms. Denies any shortness of breath or chest pain. Review of Systems Review of [employer]
--- NOTE | 2021-05-09 15:20 | PM.DS ---
DS: Admitting Diagnosis Discharge Date 05/09/2021 Admitting Diagnosis Fall DS: Discharge Diagnosis Discharge Diagnosis (1) Inability to ambulate due to knee: Code(s): R26.2 - Difficulty in walking, not elsewhere classified Status: Acute (2) COVID: Code(s): U07.1 - COVID-19 Status: Acute (3) Dementia of the Alzheimer's type: Qualifiers: Alzheimer's disease onset: unspecified onset Dementia behavioral disturbance: without behavioral disturbance Qualified Code(s): G30.9 - Alzheimer's disease, unspecified; F02.80 - Dementia in other diseases classified elsewhere without behavioral disturbance Code(s): G30.9 - Alzheimer's disease, unspecified; F02.80 - Dementia in other diseases classified elsewhere without behavioral disturbance Status: Acute (4) History of rectal cancer: Code(s): Z85.048 - Personal history of other malignant neoplasm of rectum, rectosigmoid junction, and anus Status: Acute (5) GERD (gastroesophageal reflux disease): Code(s): K21.9 - Gastro-esophageal reflux disease without esophagitis Status: Acute (6) Heartburn: Code(s): R12 - Heartburn Status: Acute DS: Summary Hospital Course Hospital Course: # fall no reported head injury, refuse CT scan of the head. With some worsening confusion CT head reordered which is reviewed and has no acute findings. Other traumatic workup with x-ray knee and ankle with no bony injuries. # acute COVID infection since mid March swab still positive chest x-rays negative no hypoxia noted. Will continue to monitor no acute indication of starting Decadron or remdesivir. He is out of the window for remdesivir. # chronic anemia no signs of bleeding continue to monitor # altered mental status unknown baseline he might be pretty much at his baseline. CT head will be done. No other signs of infections noted # Diabetes mellitus type 2 SSI hold glipizide # hypertension uncontrolled on admission resume his home medication. As he has not received his regular home medication yesterday. Pressure much more controlled now # Hyperlipidemia home medication # dementia progressive resume home medication # DVT prophylaxis Lovenox # code status full code # disposition 's mender hand not able to take care of him needs placement care coordination consultation and was found by care coordination and discharge to the facility. Time Spent with Patient Time attestation: Total time spent providing and/or coordinating discharge services: 40 minutes Exam Narrative: GENERAL: Well-appearing, well-nourished, and in no acute distress. HEAD: Normocephalic, atraumatic. EYES: PERRLA and EOMI. ENT: Nares clear, no rhinorrhea or epistaxis. Mucous membranes moist. NECK: Supple. ROM intact. CHEST: Clear to auscultation. No respiratory distress. No wheezes rales or rhonchi HEART: Regular rate and rhythm. No murmur heard. Normal peripheral pulses. ABDOMEN: Soft, nontender, nondistended, colostomy bag noted. EXTREMITIES: No edema cyanosis or clubbing SKIN: Warm, dry, no rash. NEURO: No focal deficits. Alert to self. Pleasantly confused follow commands PSYCH: Normal mood and affect. DS: Data Data Completed and Pending Labs on day of discharge: Labs from last 24 hours 05/09/21 05/09/21 05/08/21 12:17 07:35 21:01 POC Capillary Glucose 176 H 237 H 164 H 05/08/21 16:12 POC Capillary Glucose 297 H Imaging Radiologist's impression: ITS Impressions Ankle X-Ray 05/07/21 14:50 IMPRESSION: 1. XR ankle RT min 3V exam without acute osseous findings. Knee X-Ray 05/07/21 14:51 IMPRESSION: 1. 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 No fracture or other acute osseous abnormality. Chest X-Ray 05/07/21 17:02 IMPRESSION: 1. No acute cardiopulmonary disease. Head CT 05/08/21 10:05 IMPRESSION: 1. No fracture or acute intracranial process.
--- NOTE | 2021-05-09 15:45 | PCOTNOTE ---
Attempted to se pt. for evaluation. Per nurse pt. being d/c'd today
[2021-05-09 16:43] LABS: Glucose Point of Care 208 mg/dl (65-105)
[2021-05-09] MEDS: glipiZIDE 5 MG TABLET PO (17:10)
== END 2021-05-09 21:45 ==
LOC: ANHED 19:01 → ANH3MEDSUR 05-08 02:59 → ANH2MED 05-13 10:23 → ANH3MEDSUR 05-13 10:23
PROVIDERS: Physician Assistant; Admitting Provider Family Medicine; Emergency Provider Family Medicine; PCP Physician Assistant; Visit Provider Internal Medicine
DX: R26.2 Difficulty in walking, not elsewhere classified (principal); U07.1 COVID-19; G30.9 Alzheimer's disease, unspecified; F02.80 Dementia in other diseases classified elsewhere, unspecified severity, without behavioral disturbance, psychotic disturbance, mood disturbance, and anxiety; D64.9 Anemia, unspecified; E11.9 Type 2 diabetes mellitus without complications; E78.5 Hyperlipidemia, unspecified; I10 Essential (primary) hypertension; K21.9 Gastro-esophageal reflux disease without esophagitis; R12 Heartburn; W19.XXXA Unspecified fall, initial encounter; Z79.84 Long term (current) use of oral hypoglycemic drugs; Z79.82 Long term (current) use of aspirin; Z79.02 Long term (current) use of antithrombotics/antiplatelets; F17.210 Nicotine dependence, cigarettes, uncomplicated; Z85.048 Personal history of other malignant neoplasm of rectum, rectosigmoid junction, and anus
CPT/HCPCS: 36415; 70450; 71045; 73562; 73610; 80053; 81001; 82948; 85025; 96372; 96374; 96376; 97161; 99285; A9270; C9803; G0378; J0360; J1650; J1815; U0003; U0005

== ENCOUNTER 2021-06-25 16:25 | Inpatient (IN) | payer MEDICARE, SELFPAY ==
--- NOTE | ~2021-06-25 | US_ITS ---
EXAMINATION: US renal BI DATE: 06/26/2021 13:22 INDICATION: Acute renal insufficiency TECHNIQUE: Multiple ultrasound grayscale images of the kidneys were obtained. COMPARISON: CT dated 11/08/2019 FINDINGS: The right kidney measures 11.7 x 4.9 x 6.0 cm. The left kidney measures 11.0 x 4.8 x 6.6 cm. The kidn eys demonstrate normal echogenicity. There is no hydronephrosis in either kidney. No stones identifi ed. Dependently layering hypoechoic debris in the otherwise normal-appearing distended bladder. IMPRESSION: 1. Normal kidneys without hydronephrosis. 2. Small amount of layering debris in the bladder. Correlate with urinalysis. Reviewed, dictated and finalized at location A.
[2021-06-25 16:30] VITALS: BP 93/52; PULSE 60; RESP 16; TEMP 36.3; O2SAT 97
--- NOTE | 2021-06-25 16:31 | ECG_ITS ---
Measurements Intervals [place] Rate: 55 P: 45 [place]: 134 QRS: 37 QRSD: 139 T: 36 QT: 463 QTc: 444 Interpretive Statements SINUS BRADYCARDIA RIGHT BUNDLE BRANCH BLOCK [120+ ms QRS DURATION, UPRIGHT V1, 40+ ms S IN I/aVL/V4/V5/V6] ABNORMAL ECG NO PREVIOUS ECG AVAILABLE FOR COMPARISON Electronically Signed On 06-26-2021 15:31:42 CDT by Vishnu Fajardo M.D.
[2021-06-25] MEDS: SODIUM CHLORIDE 0.9% IV 1,000 ML 150 ML IV CONT (16:57)
[2021-06-25 17:03] LABS: Basophils Absolute Auto 0.1 K/mm3 (0.0-0.1); Basophils Percent Auto 0.5 % (0.2-1.2); Eosinophils Absolute Auto 1.1 K/mm3 (0-0.3); Eosinophils Percent Auto 8.1 % (0-4.4); Hematocrit 26.2 % (42.0-52.0); Hemoglobin 8.2 g/dL (14.0-18.0); Immature Granulocyte Absolute 0.04 K/mm3 (0.00-0.031); Immature Granulocyte Percent A 0.3 % (0-0.5); Lymphocytes Absolute Auto 2.42 K/mm3 (0.9-3.2); Lymphocytes Percent Auto 17.9 % (18.3-44.2); Mean Corpuscular HGB Conc 31.3 g/dl (32-36); Mean Corpuscular Hemoglobin 29.8 pg (26-34); Mean Corpuscular Volume 95.3 fl (80-100); Mean Platelet Volume 9.3 fl (7.4-10.4); Monocytes Absolute Auto 1.5 K/mm3 (0.1-0.6); Neutrophils Absolute Auto 8.4 K/mm3 (1.3-6.7); Neutrophils Percent Auto 62.2 % (45.5-73.1); Platelet Count Result 441 k/mm3 (150-375); Red Blood Count 2.75 M/mm3 (4.6-6.20); White Blood Count 13.5 K/mm3 (4.5-10.0)
[2021-06-25 17:04] LABS: Appearance Urine Cloudy (Clear); Bilirubin Urine Negative (Negative); Color Urine Yellow (Yellow); Glucose Urine UA Negative (Negative); Ketones Urine Negative (Negative); Leukocyte Esterase Ur 1+ LEU/UL (Negative); Nitrate Urine Negative (Negative); Protein Urine 3+ mg/dL (Negative); Urobilinogen Urine 0.2 mg/dL (<2.0); pH Urine 5.5 (5.0-9.0)
[2021-06-25 17:07] LABS: Add Urine Microscopic? YES; Blood Urine Trace-Intact (Negative)
[2021-06-25 17:08] LABS: Amorphous Sediment Urine Few; Mucus Urine Rare /lpf; Squamous Epithelial Cell Urine Rare /hpf (Few); WBC Clumps Urine Present /HPF; WBC Urine >75 /hpf
[2021-06-25 17:21] LABS: Alanine Aminotransferase 13 U/L (4-50); Albumin Level 3.8 g/dL (3.5-5.1); Alkaline Phosphatase 90 U/L (38-126); Anion Gap 15 mmol/L (8-16); Aspartate Amino Transferase 21 U/L (17-59); Bilirubin,Total < 0.1 mg/dL (0.2-1.3); Blood Urea Nitrogen 73 mg/dL (9-20); Calcium 8.4 mg/dL (8.4-10.2); Carbon Dioxide 14 mmol/L (22-30); Chloride 115 mmol/L (98-107); Estimated CRCL calculation 17 ml/min; Estimated Glomerular Filt Rate 19; Glucose 40 mg/dL (65-110); Potassium 4.2 mmol/L (3.4-5.0); Sodium 144 mmol/L (137-145)
[2021-06-25] MEDS: DEXTROSE 50% 25 GM/50 ML SYRINGE (17:26)
[2021-06-25 17:36] VITALS: BP 97/44; PULSE 58; RESP 16; O2SAT 98
[2021-06-25 17:56] LABS: Glucose Point of Care 184 mg/dl (65-105)
--- NOTE | 2021-06-25 17:59 | ED.GENADULT ---
HPI - General Adult General Chief complaint: Recheck/Abnormal Lab/Rx Stated complaint: ABN LABS Time Seen by Provider: 06/25/21 16:28 Source: patient and EMS Mode of arrival: EMS Limitations: dementia History of Present Illness HPI narrative: 76-year-old with a history of hypertension, diabetes, s/p colostomy is sent in from [facility] with abnormal renal functions. Patient denies any chest pain, shortness of breath. No history of nausea or vomiting. Notes recent change in medication. BUN and creatinine today was 74/3.0 Associated symptoms: denies other symptoms Related Data Home Medications Medication Instructions Recorded Confirmed atorvastatin 20 mg PO HS 09/25/19 05/07/21 carvedilol 12.5 mg PO BID 09/25/19 05/07/21 clopidogrel 75 mg PO DAILY 09/25/19 05/07/21 losartan 100 mg PO DAILY 09/25/19 05/07/21 metformin 1,000 mg PO BID 09/25/19 05/07/21 sertraline 50 mg PO HS 09/25/19 05/07/21 theophylline 400 mg PO DAILY 09/25/19 05/07/21 aspirin 81 mg tablet,delayed 81 mg PO DAILY 10/07/20 05/07/21 release donepezil 10 mg tablet 10 mg PO HS tablet 10/07/20 05/07/21 glipizide 5 mg tablet 5 mg PO BID tablet 10/07/20 05/07/21 multivitamin 1 tablet PO DAILY 10/07/20 05/07/21 melatonin 5 mg PO HS 05/07/21 05/07/21 insulin glargine [Lantus Solostar 10 unit SUBCUT QPM 06/25/21 06/25/21 U-100 Insulin] memantine [Namenda] 5 mg PO QAM 06/25/21 06/25/21 mirtazapine [Remeron] 30 mg PO HS 06/25/21 06/25/21 pantoprazole [Protonix] 20 mg PO HS 06/25/21 06/25/21 Allergies Allergy/AdvReac Type Severity Reaction Status Date / Time aloe vera Allergy Intermediate Other Verified 06/25/21 17:49 Review of Systems Review of Systems: All systems reviewed & are unremarkable except as noted in HPI and below Constitutional: Constitutional: Reports no additional constitutional complaints Eyes: Eyes: Reports no additional eye complaints ENT: Reports system reviewed and no additional complaints, except as documented Cardiovascular: Cardiovascular: Reports no additional cardiovascular complaints Respiratory: Respiratory: Reports no additional respiratory complaints Gastrointestinal: Gastrointestinal: Reports no additional gastrointestinal complaints Musculoskeletal: Musculoskeletal: Reports no additional musculoskeletal complaints Neurologic: Reports system reviewed and no additional complaints, except as documented [facility] Family History Family History Other Unknown family medical history Social History Social History Smoking status: Current some day smoker Tobacco type: cigarettes Additional smoking assessment comments: 1 a week Alcohol intake: never Alcohol use details: He states he drinks beer and 1/2 per month. Substance use: never Substance use type: does not use Spiritual care concerns: No Exam Narrative: GENERAL: Well-appearing, well-nourished, and in no acute distress. HEAD: Normocephalic, atraumatic. EYES: PERRLA and EOMI. NECK: Supple. CHEST: Clear to auscultation. No respiratory distress. HEART: Regular rate and rhythm. No murmur heard. Normal peripheral pulses. ABDOMEN: Soft, nontender, nondistended, has a colostomy. EXTREMITIES: Normal range of motion. No edema. SKIN: Warm, dry, no rash. NEURO: No focal deficits. Alert . PSYCH: Normal mood and affect. Course Course Emergency Course: Patient's BUN/creatinine today 70/3.0 his baseline creatinine is 1.6. As per the [facility] there is no history of any nausea vomiting or diarrhea. We will hydrate with normal saline. I did consult Dr. Buenrostro coffee plantation worker he agreed with the plan of D5W with bicarb drip. Vital Signs Vital signs: Vital Signs Temperature 36.3 C L 06/25/21 16:30 Pulse Rate 60 06/25/21 16:30 Respiratory Rate 16 06/25/21 16:30 Blood Pressure 93/52 L 06/25/21 16:30 Pulse Oximetry 97 06/25/21 16:30 T
[2021-06-25] MEDS: SODIUM BICARBONATE 8.4% 100 MEQ in DEXTROSE 5% 1,000 ML 1,000 ML IV CONT (18:09)
[2021-06-25 18:18] LABS: SARS-CoV-2 RNA PCR Negative
[2021-06-25 19:03] VITALS: BP 122/56; PULSE 60; RESP 12; O2SAT 98
--- NOTE | 2021-06-25 19:51 | PM.IMHP ---
H&P: HPI History of Present Illness Date/Time: Patient was placed observation status for expected length of stay less than 23 hours for management, will plan to re-evaluate tomorrow for improvement. 06/25/21 19:51 Chief Complaint: Abnormal laboratories Narrative: Mr. Pacheco is a 76-year-old gentleman with a known history of Alzheimer's disease at an extended care facility who was sent to the emergency room for abnormal laboratories. Patient is at baseline orientation status. Patient had routine laboratory drawn at the extended care facility showed acute renal failure and patient was sent to the hospital for further evaluation. Patient is unable to give any symptomatology since he does have advanced Alzheimer's disease. Patient's is at bedside states that she was told to come to the hospital with the patient since he had abnormal laboratories. Patient's spouse states that patient has not complained of anything and day-to-day care facility did not note that patient had any fever or chills. Patient has a known history of COVID in March of this year, Alzheimer's disease, diabetes mellitus, hypertension, dyslipidemia, and colon cancer status post colostomy. Review of Systems Review of Systems: I am unable to obtain full review of systems secondary to patient's clinical condition of Alzheimer's disease and being alert orient x1. [facility] Past Medical History Medical History (Updated 06/25/21 @ 20:03 by La Nena Matthews APRN) COVID Dementia of the Alzheimer's type Diabetes mellitus Dyslipidemia History of rectal cancer Hypertension Surgical History Surgical History (Updated 06/25/21 @ 20:00 by La Nena Matthews APRN) History of colostomy Family History Family History Other Unknown family medical history Social History Social History Smoking status: Current some day smoker Tobacco type: cigarettes Additional smoking assessment comments: 1 a week Alcohol intake: never Alcohol use details: He states he drinks beer and 1/2 per month. Substance use: never Substance use type: does not use Spiritual care concerns: No Meds Home Medications and Allergies Home Medications Medication Instructions Recorded Confirmed Type atorvastatin 20 mg PO HS 09/25/19 06/25/21 History carvedilol 12.5 mg PO BID 09/25/19 06/25/21 History clopidogrel 75 mg PO DAILY 09/25/19 06/25/21 History losartan 100 mg PO DAILY 09/25/19 06/25/21 History metformin 1,000 mg PO BID 09/25/19 06/25/21 History sertraline 50 mg PO HS 09/25/19 06/25/21 History theophylline 400 mg PO DAILY 09/25/19 06/25/21 History aspirin 81 mg tablet,delayed 81 mg PO DAILY 10/07/20 06/25/21 History release donepezil 10 mg tablet 10 mg PO HS tablet 10/07/20 06/25/21 History glipizide 5 mg tablet 5 mg PO BID tablet 10/07/20 06/25/21 History multivitamin 1 tablet PO DAILY 10/07/20 06/25/21 History melatonin 5 mg PO HS 05/07/21 06/25/21 History insulin glargine [Lantus Solostar 10 unit SUBCUT QPM 06/25/21 06/25/21 History U-100 Insulin] memantine [Namenda] 5 mg PO QAM 06/25/21 06/25/21 History mirtazapine [Remeron] 30 mg PO HS 06/25/21 06/25/21 History pantoprazole [Protonix] 20 mg PO HS 06/25/21 06/25/21 History Allergies Allergy/AdvReac Type Severity Reaction Status Date / Time aloe vera Allergy Intermediate Other Verified 06/25/21 17:49 Vital Signs Vital Signs - 24 hr 06/25/21 16:30 06/25/21 17:36 06/25/21 19:03 Temperature 36.3 C L Pulse Rate 60 58 L 60 Respiratory Rate 16 16 12 Blood Pressure 93/52 L 97/44 L 122/56 L Pulse Oximetry 97 98 98 Exam Narrative: Constitutional: Patient is well-nourished in no acute distress. Patient is alert and oriented to self only HEENT: Moist mucous membranes. No scleral icterus. No lymphadenopathy. Neck: No carotid bruits noted no JVD noted Lungs: Lung sounds are clear
[2021-06-25 20:02] VITALS: BP 116/62; PULSE 72; RESP 16; O2SAT 98
--- NOTE | 2021-06-25 20:10 | ADMGEN ---
This patient, Shane Pacheco, was admitted to Medical Room 346-01. Patient/family oriented to hospital policies and general routines including ID bracelet, bed and alarms, visiting hours, pain management, procedures, bathroom and other care routines, personal items, smoking policy, room service/diet, and visiting hours. Information on how to activate the Rapid Response Team has been discussed. Patient/Family are encouraged to report perceived risks to care and to ask questions if they do not understand what they are told or what they should do.
[2021-06-25 20:20] VITALS: BP 133/51; PULSE 66; RESP 16; TEMP 36.6; O2SAT 99
[2021-06-25 20:21] VITALS: BMI 20.9
[2021-06-25 20:34] LABS: Glucose Point of Care 190 mg/dl (65-105)
[2021-06-25] MEDS: HEPARIN SODIUM 5,000 UNITS/ML VIAL 5000 UNITS SUB-Q (23:17)
[2021-06-25] MEDS: MELATONIN 5 MG TABLET PO (23:19)
[2021-06-26 04:27] VITALS: BP 143/51; PULSE 67; RESP 16; TEMP 36.6; O2SAT 98
[2021-06-26 05:54] LABS: Basophils Absolute Auto 0.1 K/mm3 (0.0-0.1); Basophils Percent Auto 0.5 % (0.2-1.2); Eosinophils Absolute Auto 0.6 K/mm3 (0-0.3); Eosinophils Percent Auto 6.3 % (0-4.4); Hematocrit 25.1 % (42.0-52.0); Immature Granulocyte Absolute 0.03 K/mm3 (0.00-0.031); Immature Granulocyte Percent A 0.3 % (0-0.5); Lymphocytes Absolute Auto 1.79 K/mm3 (0.9-3.2); Mean Corpuscular HGB Conc 31.9 g/dl (32-36); Mean Corpuscular Hemoglobin 30.3 pg (26-34); Mean Corpuscular Volume 95.1 fl (80-100); Mean Platelet Volume 9.4 fl (7.4-10.4); Monocytes Absolute Auto 0.8 K/mm3 (0.1-0.6); Monocytes Percent Auto 8.6 % (2.6-8.5); Neutrophils Absolute Auto 6.1 K/mm3 (1.3-6.7); Neutrophils Percent Auto 65.3 % (45.5-73.1); Platelet Count Result 334 k/mm3 (150-375); Red Blood Count 2.64 M/mm3 (4.6-6.20); Red Cell Distribution Width 13.7 % (11.5-14.5); White Blood Count 9.4 K/mm3 (4.5-10.0)
[2021-06-26 06:05] LABS: Anion Gap 11 mmol/L (8-16); Blood Urea Nitrogen 71 mg/dL (9-20); Calcium 7.8 mg/dL (8.4-10.2); Carbon Dioxide 19 mmol/L (22-30); Chloride 110 mmol/L (98-107); Creatine Kinase 320 U/L (55-170); Estimated CRCL calculation 18 ml/min; Estimated Glomerular Filt Rate 22; Glucose 163 mg/dL (65-110); Phosphorus 4.9 mg/dL (2.5-4.5); Potassium 3.6 mmol/L (3.4-5.0); Sodium 140 mmol/L (137-145)
[2021-06-26 07:51] LABS: Glucose Point of Care 126 mg/dl (65-105)
[2021-06-26 08:19] VITALS: O2SAT 98
[2021-06-26] MEDS: CLOPIDOGREL BISULFATE 75 MG TABLET PO (08:35)
[2021-06-26] MEDS: THEOPHYLLINE ANHYDROUS 200 MG ER 24 HR CAPSULE 400 MG PO (08:35)
[2021-06-26] MEDS: ASPIRIN 81 MG ENTERIC TABLET PO (08:35)
[2021-06-26] MEDS: HEPARIN SODIUM 5,000 UNITS/ML VIAL 5000 UNITS SUB-Q ×2 (08:35→19:59)
[2021-06-26 08:36] VITALS: PULSE 70
[2021-06-26] MEDS: carvediloL 12.5 MG TABLET PO ×2 (08:36→16:15)
[2021-06-26] MEDS: MULTIVITAMINS THERAPEUTIC TAB (*BKC) 1 TABLET PO (08:36)
[2021-06-26] MEDS: MEMANTINE 5 MG TABLET PO (08:36)
[2021-06-26] MEDS: LACTATED RINGERS 1,000 ML 100 ML IV CONT (10:51)
[2021-06-26 11:28] LABS: Glucose Point of Care 191 mg/dl (65-105)
--- NOTE | 2021-06-26 11:30 | PM.IMPN ---
Progress Note: A&P Assessment and Plan (1) BISI (acute kidney injury): Code(s): N17.9 - Acute kidney failure, unspecified Status: Acute Assessment and Plan: BUN and creatinine trending down 71/2.80 Most likely secondary to dehydration and urinary tract infection. IV fluids for hydration continue with daily Rocephin urine studies ordered by Nephrology pending renal ultrasound showed normal kidneys without hydronephrosis and small amount of debris in the bladder culture pending Nephrology has been consulted and do appreciate further recommendations. (2) Acute UTI: Code(s): N39.0 - Urinary tract infection, site not specified Status: Acute Assessment and Plan: ceftriaxone 1 g q.day urine culture pending tailor antibiotics to sensitivities (3) Diabetes mellitus: Code(s): E11.9 - Type 2 diabetes mellitus without complications Status: Chronic Assessment and Plan: Patient was initially hypoglycemic in the emergency room with a glucose of 40 blood glucose monitoring before meals and at bedtime hold sulfonylurea at this time secondary to patient's acute kidney injury insulin sliding scale hypoglycemia protocol trend glucose labs in the a.m. (4) Hypertension: Code(s): I10 - Essential (primary) hypertension Status: Chronic Assessment and Plan: blood pressure 136/42 continue home losartan, carvedilol trend blood pressure adjust therapy as indicated (5) Dementia of the Alzheimer's type: Qualifiers: Alzheimer's disease onset: unspecified onset Dementia behavioral disturbance: without behavioral disturbance Qualified Code(s): G30.9 - Alzheimer's disease, unspecified; F02.80 - Dementia in other diseases classified elsewhere without behavioral disturbance Code(s): G30.9 - Alzheimer's disease, unspecified; F02.80 - Dementia in other diseases classified elsewhere without behavioral disturbance Status: Acute Assessment and Plan: Continue donepezil 10mg PO tablet, Memantine 5mg PO daily Remeron HS Will need to increase memantine to 10mg on 07/01/21 (6) Rhabdomyolysis: Code(s): M62.82 - Rhabdomyolysis Status: Acute Assessment and Plan: Mild rhabdo noted with elevated CK of 320 IV fluids on board Could be contributing to his kidney failure Continue to trend CK Time Spent With Patient Time with patient: Greater than 35 minutes Subjective Date/time seen: 06/26/21 1130 Interval history: 06/25/21 19:51 Narrative: Mr. Pacheco is a 76-year-old gentleman with a known history of Alzheimer's disease at an extended care facility who was sent to the emergency room for abnormal laboratories. Patient is at baseline orientation status. Patient had routine laboratory drawn at the extended care facility showed acute renal failure and patient was sent to the hospital for further evaluation. Patient is unable to give any symptomatology since he does have advanced Alzheimer's disease. Patient's is at bedside states that she was told to come to the hospital with the patient since he had abnormal laboratories. Patient's spouse states that patient has not complained of anything and day-to-day care facility did not note that patient had any fever or chills. Patient has a known history of COVID in March of this year, Alzheimer's disease, diabetes mellitus, hypertension, dyslipidemia, and colon cancer status post colostomy. 06/26/21 1130 Patient is still very confused today. I asked the patient how he was doing and he responded with cup. He denies any issues like chest pain, shortness of breath, nausea, vomiting, diarrhea, constipation, weakness or fatigue however a complete review of systems unable to be obtained or reliable due to patient's mental status Review of Systems Review of Systems: ROS unobtainable: Yes unob
--- NOTE | 2021-06-26 11:30 | P.PNIM_ITS ---
Progress Note: A&P Assessment and Plan (1) BISI (acute kidney injury): Code(s): N17.9 - Acute kidney failure, unspecified Status: Acute Assessment and Plan: * BUN and creatinine trending down 71/2.80 * Most likely secondary to dehydration and urinary tract infection. * IV fluids for hydration * continue with daily Rocephin * urine studies ordered by Nephrology pending * renal ultrasound showed normal kidneys without hydronephrosis and small amount of debris in the bladder * culture pending * Nephrology has been consulted and do appreciate further recommendations. (2) Acute UTI: Code(s): N39.0 - Urinary tract infection, site not specified Status: Acute Assessment and Plan: * ceftriaxone 1 g q.day * urine culture pending * tailor antibiotics to sensitivities (3) Diabetes mellitus: Code(s): E11.9 - Type 2 diabetes mellitus without complications Status: Chronic Assessment and Plan: * Patient was initially hypoglycemic in the emergency room with a glucose of 40 * blood glucose monitoring before meals and at bedtime * hold sulfonylurea at this time secondary to patient's acute kidney injury * insulin sliding scale * hypoglycemia protocol * trend glucose * labs in the a.m. (4) Hypertension: Code(s): I10 - Essential (primary) hypertension Status: Chronic Assessment and Plan: * blood pressure 136/42 * continue home losartan, carvedilol * trend blood pressure * adjust therapy as indicated (5) Dementia of the Alzheimer's type: Qualifiers: Alzheimer's disease onset: unspecified onset Dementia behavioral disturbance: without behavioral disturbance Qualified Code(s): G30.9 - Alzheimer's disease, unspecified; F02.80 - Dementia in other diseases classified elsewhere without behavioral disturbance Code(s): G30.9 - Alzheimer's disease, unspecified; F02.80 - Dementia in other diseases classified elsewhere without behavioral disturbance Status: Acute Assessment and Plan: * Continue donepezil 10mg PO tablet, Memantine 5mg PO daily * Remeron HS * Will need to increase memantine to 10mg on 07/01/21 (6) Rhabdomyolysis: Code(s): M62.82 - Rhabdomyolysis Status: Acute Assessment and Plan: * Mild rhabdo noted with elevated CK of 320 * IV fluids on board * Could be contributing to his kidney failure * Continue to trend CK Time Spent With Patient Time with patient: Greater than 35 minutes Subjective Date/time seen: 06/26/21 1130 Interval history: 06/25/21 19:51 Narrative: Mr. Pacheco is a 76-year-old gentleman with a known history of Alzheimer's disease at an [facility] care facility who was sent to the emergency room for abnormal laboratories. Patient is at baseline orientation status. Patient had routine laboratory drawn at the [facility] showed acute renal failure and patient was sent to the hospital for further evaluation. Patient is unable to give any symptomatology since he does have advanced Alzheimer's disease. Patient's is at bedside states that she was told to come to the hospital with the patient since he had abnormal laboratories. Patient's spouse states that patient has not complained of anything and day-to-day care facility did not note that patient had any fever or chills. Patient has a known history of COVID in March of this year, Alzheimer's disease, diabetes
--- NOTE | 2021-06-26 11:38 | PM.CNNEP ---
Assessment and Plan Assessment and plan (1) BISI (acute kidney injury): Code(s): N17.9 - Acute kidney failure, unspecified Status: Acute Assessment and Plan: etiology? -- suspect volume depletion and possible UTI check urine electrolytes and CPK check renal ultrasound trial of IVF resuscitation follow repeat labs and UOP (2) Stage 3a chronic kidney disease: Code(s): N18.31 - Chronic kidney disease, stage 3a Status: Chronic Assessment and Plan: baseline creatinine runs 1.2 - 1.3mg/dl mild renal insufficiency due to DM, HTN, vascular disease, and age (3) Acute UTI: Code(s): N39.0 - Urinary tract infection, site not specified Status: Acute Assessment and Plan: as noted by admission urinalysis on antibiotics follow-up on urine culture (4) Hypertension: Code(s): I10 - Essential (primary) hypertension Status: Chronic Assessment and Plan: reasonable control at this time follow trend of hemodynamics (5) Diabetes mellitus: Code(s): E11.9 - Type 2 diabetes mellitus without complications Status: Chronic Assessment and Plan: follow accuchecks glycemic control Will continue to follow. History of Present Illness Reason for Consult Consult date: 06/26/21 Reason for consult: acute renal failure (on chronic kidney disease) Chief Complaint Chief complaint: BISI History of Present Illness Narrative: Most of the information I have obtained is from review of the electronic medical record as well as discussion with the physician/nurses involved in his care as is difficult to get a full and complete history from the patient given his underlying dementia. The patient is a 76-year-old male with a past medical history as outlined below who presented to [facility] Emergency room from his nursing facility due to abnormal labs. Apparently, the patient had labs drawn at his extended care facility recently which showed evidence of acute renal failure/acute kidney injury and because of these laboratory abnormalities, was sent to the ER for further assessment. Unfortunately, as mentioned above, the patient is unable to provide much history or provide any other symptoms given his advanced Alzheimer's disease / dementia. Per ER notes, his was with him when he presented to the hospital and she did not report any significant changes in terms of fevers, chills, nausea, vomiting, or any other subjective symptoms that she was aware of prior to his presentation to the ER. Workup and evaluation emergency room demonstrated the patient to be hemodynamically stable but routine blood test did confirm an elevated BUN and creatinine above his baseline in association with a CBC that showed a mildly elevated white blood cell count and relative anemia. His urinalysis was highly suggestive of a urinary tract infection as well. Given these laboratory abnormalities and the patient somewhat complex medical history, he was admitted the hospital for further evaluation and therapy. Since his admission, he has been receiving IV fluids and his renal function appears to be improving. Furthermore, he remains on antibiotic therapy for his presumed urinary tract infection as well. Unfortunately, his mentation remains about the same to his difficult to assess if he actually symptomatic Raquel feels better at this point in time. Renal consultation was requested due to his acute kidney injury/acute renal failure. From review of his records, the patient has a baseline creatinine around 1.2-1.3 mg/dL which argues that he probably has some mild renal insufficiency at baseline. Given his history, his baseline renal insufficiency is probably due to a combination of diabetes, hypertension, vascular disease, and age-related change. On admission, his creatinine was 3.2 mg/dL and as already mentioned as well, it is already improved with current interventions to d
[2021-06-26 15:43] VITALS: BP 136/42; PULSE 72; RESP 20; TEMP 36.6; O2SAT 100
[2021-06-26 16:00] LABS: Creatinine Urine 76.2 mg/dL; Total Protein Urine Random 100 mg/dL; Ur Ttl Prot Creatinine Ratio 1.31 mg/mg (0-0.20)
[2021-06-26 16:09] LABS: Sodium Urine Random 70 meq/L
[2021-06-26 16:15] VITALS: PULSE 64
[2021-06-26 16:35] LABS: Glucose Point of Care 194 mg/dl (65-105)
[2021-06-26 16:49] LABS: Eosinophil Urine None Seen % (None Seen)
[2021-06-26] MEDS: INSULIN GLARGINE (*BKC) 100 UNITS/ML 10 UNITS SUB-Q (16:59)
[2021-06-26] MEDS: PANTOPRAZOLE SOD SESQUIHYDRATE 20 MG TAB PO (19:59)
[2021-06-26] MEDS: SERTRALINE HCL 50 MG TABLET PO (19:59)
[2021-06-26] MEDS: DONEPEZIL HCL 10 MG TABLET PO (19:59)
[2021-06-26] MEDS: MELATONIN 5 MG TABLET PO (19:59)
[2021-06-26] MEDS: MIRTAZAPINE 30 MG TABLET PO (19:59)
[2021-06-26] MEDS: ATORVASTATIN 20 MG TABLET PO (19:59)
[2021-06-26 20:16] VITALS: BP 168/68; PULSE 73; RESP 18; TEMP 37; O2SAT 100
[2021-06-26 20:59] LABS: Glucose Point of Care 206 mg/dl (65-105)
[2021-06-27 05:20] VITALS: BP 166/82; PULSE 67; RESP 15; TEMP 36.4; O2SAT 99
[2021-06-27 06:10] LABS: Basophils Absolute Auto 0.1 K/mm3 (0.0-0.1); Basophils Percent Auto 0.5 % (0.2-1.2); Eosinophils Absolute Auto 0.8 K/mm3 (0-0.3); Eosinophils Percent Auto 7.7 % (0-4.4); Hematocrit 27.5 % (42.0-52.0); Hemoglobin 8.8 g/dL (14.0-18.0); Immature Granulocyte Absolute 0.05 K/mm3 (0.00-0.031); Immature Granulocyte Percent A 0.5 % (0-0.5); Lymphocytes Absolute Auto 1.65 K/mm3 (0.9-3.2); Lymphocytes Percent Auto 16.5 % (18.3-44.2); Mean Corpuscular Hemoglobin 30.1 pg (26-34); Mean Corpuscular Volume 94.2 fl (80-100); Mean Platelet Volume 9.2 fl (7.4-10.4); Monocytes Absolute Auto 0.9 K/mm3 (0.1-0.6); Monocytes Percent Auto 8.7 % (2.6-8.5); Neutrophils Absolute Auto 6.6 K/mm3 (1.3-6.7); Neutrophils Percent Auto 66.1 % (45.5-73.1); Platelet Count Result 382 k/mm3 (150-375); Red Blood Count 2.92 M/mm3 (4.6-6.20); Red Cell Distribution Width 13.6 % (11.5-14.5)
[2021-06-27 07:14] LABS: Alanine Aminotransferase 12 U/L (4-50); Albumin Level 3.5 g/dL (3.5-5.1); Alkaline Phosphatase 100 U/L (38-126); Anion Gap 7 mmol/L (8-16); Aspartate Amino Transferase 27 U/L (17-59); Bilirubin,Total 0.1 mg/dL (0.2-1.3); Blood Urea Nitrogen 48 mg/dL (9-20); Carbon Dioxide 22 mmol/L (22-30); Chloride 109 mmol/L (98-107); Creatine Kinase 357 U/L (55-170); Estimated CRCL calculation 26 ml/min; Estimated Glomerular Filt Rate 35; Glucose 128 mg/dL (65-110); Potassium 3.9 mmol/L (3.4-5.0); Sodium 138 mmol/L (137-145)
[2021-06-27 07:52] LABS: Glucose Point of Care 142 mg/dl (65-105)
[2021-06-27] MEDS: LACTATED RINGERS 1,000 ML 100 ML IV CONT (09:05)
[2021-06-27] MEDS: MULTIVITAMINS THERAPEUTIC TAB (*BKC) 1 TABLET PO (09:06)
[2021-06-27] MEDS: CLOPIDOGREL BISULFATE 75 MG TABLET PO (09:06)
[2021-06-27] MEDS: HEPARIN SODIUM 5,000 UNITS/ML VIAL 5000 UNITS SUB-Q ×2 (09:06→20:26)
[2021-06-27] MEDS: ASPIRIN 81 MG ENTERIC TABLET PO (09:06)
[2021-06-27] MEDS: THEOPHYLLINE ANHYDROUS 200 MG ER 24 HR CAPSULE 400 MG PO (09:06)
[2021-06-27] MEDS: MEMANTINE 5 MG TABLET PO (09:06)
[2021-06-27] MEDS: carvediloL 12.5 MG TABLET PO ×2 (09:06→18:22)
--- NOTE | 2021-06-27 10:31 | PM.IMPN ---
Progress Note: A&P Assessment and Plan (1) BISI (acute kidney injury): Code(s): N17.9 - Acute kidney failure, unspecified <Anna CatJAYA johnston-C - Last Filed: 06/27/21 15:39> Status: Acute <Anna Catpreston PA-C - Last Filed: 06/27/21 15:39> Assessment and Plan: Patient's baseline creatinine is 1.3. Yesterday on admission was 3.2, and has improved to 1.9 with IV fluids. We have held his IV fluids at this time. He is eating most of his meals here. Renal ultrasound showed normal kidneys without hydronephrosis. Small amount of layering debris in the bladder. Urine culture showed no growth. His Rocephin was stopped. Likely etiology volume depletion. . -Nephrology is consulting and we appreciate their recommendations. -Strict I & Os -Continue to trend Cr. . <Anna PayneLaura Chambers PA-C - Last Filed: 06/27/21 15:39> (2) Stage 3a chronic kidney disease: Code(s): N18.31 - Chronic kidney disease, stage 3a <Anna Catpreston PA-C - Last Filed: 06/27/21 15:39> Status: Chronic <Anna Catpreston PA-C - Last Filed: 06/27/21 15:39> Assessment and Plan: Baseline creatinine 1.2-1.3. Nephrology is following . <Anna PayneLaura Chambers PA-C - Last Filed: 06/27/21 15:39> (3) Rhabdomyolysis: Code(s): M62.82 - Rhabdomyolysis <Anna Catpreston PA-C - Last Filed: 06/27/21 15:39> Status: Acute <Anna Catpreston PA-C - Last Filed: 06/27/21 15:39> Assessment and Plan: -Mild. Creatinine kinase 357 today. Up from 320 yesterday. Will continue to trend. <Anna ElmerLaura Chambers PA-C - Last Filed: 06/27/21 15:39> (4) Diabetes mellitus: Code(s): E11.9 - Type 2 diabetes mellitus without complications <JAYA Cowan-C - Last Filed: 06/27/21 15:39> Status: Chronic <Anna CatALCIDES johnston - Last Filed: 06/27/21 15:39> Assessment and Plan: Home metformin and glipizide were held upon admission. Patient is on low-dose sliding scale as well as 10 units Lantus daily. His sugars are well-controlled here. - Check A1C. - Continue low-dose sliding scale and Lantus. - Continue accuchecks, hypoglycemic protocol. <Anna CatALCIDES johnston - Last Filed: 06/27/21 15:39> (5) Hypertension: Code(s): I10 - Essential (primary) hypertension <Anna Ag ALCIDES Chambers - Last Filed: 06/27/21 15:39> Status: Chronic <Anna CatALCIDES johnston - Last Filed: 06/27/21 15:39> Assessment and Plan: Losartan was held upon admission. Patient remains borderline hypertensive. Continue home carvedilol. <Anna CatALCIDES johnston - Last Filed: 06/27/21 15:39> (6) Dementia of the Alzheimer's type: Qualifiers: Alzheimer's disease onset: unspecified onset Dementia behavioral disturbance: without behavioral disturbance Qualified Code(s): G30.9 - Alzheimer's disease, unspecified; F02.80 - Dementia in other diseases classified elsewhere without behavioral disturbance <Anna CatALCIDES johnston - Last Filed: 06/27/21 15:39> Code(s): G30.9 - Alzheimer's disease, unspecified; F02.80 - Dementia in other diseases classified elsewhere without behavioral disturbance <Anna CatALCIDES johnston - Last Filed: 06/27/21 15:39> Status: Acute <Anna CatALCIDES johnston - Last Filed: 06/27/21 15:39> Assessment and Plan: Continue donepezil. <Anna CatALCIDES johnston - Last Filed: 06/27/21 15:39> (7) DVT prophylaxis: Code(s): Z29.9 - Encounter for prophylactic measures, unspecified <Anna PayneLaura Chambers PA-C - Last Filed: 06/27/21 15:39> Status: Acute <Anna Chambers PA-C - Last Filed: 06/27/21 15:39> Assessment and Plan: Continue SCDs & Heparin 5,000 Units Q 12 hrs. <Anna Chambers PA-C - Last Filed: 06/27/21 15:39> Additional Plan leave coordinator has placement for this patient upon eventual discharge. Patient will require Covid test prior to D/C. <ALCIDES Cowan Last
[2021-06-27 11:59] LABS: Glucose Point of Care 145 mg/dl (65-105)
[2021-06-27 12:15] VITALS: BP 148/68; PULSE 66; RESP 18; TEMP 36.6; O2SAT 98
[2021-06-27 12:28] VITALS: O2SAT 98
--- NOTE | 2021-06-27 13:15 | PM.PNNEP ---
Progress Note: A&P Assessment and Plan (1) BISI (acute kidney injury): Code(s): N17.9 - Acute kidney failure, unspecified Status: Acute Assessment and Plan: presumably due to volume depletion and possible UTI evaluation to date: renal ultrasound without obstruction -- possible chronic cystitis(?) urine electrolyte are non-prerenal CPK okay appears to be responding to current therapy follow repeat labs and UOP (2) Stage 3a chronic kidney disease: Code(s): N18.31 - Chronic kidney disease, stage 3a Status: Chronic Assessment and Plan: baseline creatinine runs 1.2 - 1.3mg/dl mild renal insufficiency due to DM, HTN, vascular disease, and age (3) Acute UTI: Code(s): N39.0 - Urinary tract infection, site not specified Status: Acute Assessment and Plan: as noted by admission urinalysis however, urine culture negative (4) Hypertension: Code(s): I10 - Essential (primary) hypertension Status: Chronic Assessment and Plan: reasonable control at this time follow trend of hemodynamics (5) Diabetes mellitus: Code(s): E11.9 - Type 2 diabetes mellitus without complications Status: Chronic Assessment and Plan: follow accuchecks glycemic control Will continue to follow. Subjective Date/time seen: 06/27/21 13:15 No apparent issues or events overnight or earlier this AM; no other complaints voiced but difficult to fully assess given dementia as well as aphasia; renal function is improving with current therapy; no distress noted at the time of my visit. Exam Narrative: General: elderly male in NAD Heart: normal S1 and S2; no rub Lungs: clear to auscultation Abdomen: soft, nontender, nondistended, positive bowel sounds Extremities: no cyanosis or clubbing; no edema Skin: warm and dry Objective Data Vital Signs Vital Signs: Vital Signs Temp Pulse Resp BP Pulse Ox 06/27/21 12:28 98 06/27/21 12:15 36.6 C 66 18 148/68 H 98 06/27/21 05:20 36.4 C 67 15 166/82 H 99 06/26/21 20:16 37.0 C 73 18 168/68 H 100 Intake/Output Intake/Output: Intake & Output 06/24/21 06/25/21 06/26/21 06/27/21 23:59 23:59 23:59 23:59 Intake Total 50 1050 1390 Output Total 450 450 50 Balance -[phone] Meds/Results Medications: Active Medications Generic Name Dose Route Start Last Admin Trade Name Donta PRN Reason Stop Dose Admin Acetaminophen 650 mg 06/25/21 17:55 Acetaminophen 325 Mg Tablet PO Q4H PRN Mild Pain (1-3) or Fever Aspirin 81 mg 06/26/21 09:00 06/27/21 09:06 Aspirin 81 Mg Enteric Tablet PO 81 mg DAILY ANGELINA Administration Atorvastatin Calcium 20 mg 06/25/21 21:00 06/26/21 19:59 Atorvastatin 20 Mg Tablet PO 20 mg HS ANGELINA Administration Carvedilol 12.5 mg 06/26/21 09:00 06/27/21 09:06 Carvedilol 12.5 Mg Tablet PO 12.5 mg BID ANGELINA Administration Clopidogrel Bisulfate 75 mg 06/26/21 09:00 06/27/21 09:06 Clopidogrel Bisulfate 75 Mg Tablet PO 75 mg DAILY ANGELINA Administration Dextrose 12.5 gm 06/25/21 20:22 Dextrose 50% 25 Gm/50 Ml Syringe IV PUSH PRN PRN Hypoglycemia Protocol Donepezil HCl 10 mg 06/25/21 21:00 06/26/21 19:59 Donepezil Hcl 10 Mg Tablet PO 10 mg HS ANGELINA Administration Glucagon 1 mg 06/25/21 20:22 Glucagon For Inj 1 Mg Vial IM PRN PRN Hypoglycemia Protocol Glucose 15 gm 06/25/21 20:22 Glucose Oral Gel 15 Gm Of Glucse In 37.5 Gm Tube PO PRN PRN Hypoglycemia Protocol Heparin Sodium (Porcine) 5,000 units 06/25/21 21:00 06/27/21 09:06 Heparin Sodium 5,000 Units/Ml Vial SUB-Q 5,000 units Q12HR ANGELINA Administration Dextrose 1,000 mls @ 100 mls/hr 06/25/21 20:22 Dextrose 5% 1,000 Ml IVPB PRN PRN Hypoglycemia Protocol Insulin Aspart 2 - 5 units 06/26/21 08:00 06/27/21 12:00 Insulin Aspa
[2021-06-27 16:19] LABS: Hemoglobin A1C 7.5 % (<5.7)
[2021-06-27 16:27] LABS: Glucose Point of Care 171 mg/dl (65-105)
[2021-06-27] MEDS: INSULIN GLARGINE (*BKC) 100 UNITS/ML 10 UNITS SUB-Q (18:23)
[2021-06-27 20:21] VITALS: BP 106/48; PULSE 68; RESP 16; TEMP 36.6; O2SAT 97
[2021-06-27] MEDS: MELATONIN 5 MG TABLET PO (20:26)
[2021-06-27] MEDS: MIRTAZAPINE 30 MG TABLET PO (20:26)
[2021-06-27] MEDS: DONEPEZIL HCL 10 MG TABLET PO (20:26)
[2021-06-27] MEDS: SERTRALINE HCL 50 MG TABLET PO (20:26)
[2021-06-27] MEDS: PANTOPRAZOLE SOD SESQUIHYDRATE 20 MG TAB PO (20:26)
[2021-06-27] MEDS: ATORVASTATIN 20 MG TABLET PO (20:26)
[2021-06-27 20:37] LABS: Glucose Point of Care 295 mg/dl (65-105)
[2021-06-28 06:11] VITALS: BP 148/58; PULSE 60; RESP 16; TEMP 36.6; O2SAT 99
[2021-06-28 06:23] LABS: Albumin Level 3.3 g/dL (3.5-5.1); Anion Gap 9 mmol/L (8-16); Blood Urea Nitrogen 37 mg/dL (9-20); Carbon Dioxide 22 mmol/L (22-30); Chloride 111 mmol/L (98-107); Estimated CRCL calculation 31 ml/min; Estimated Glomerular Filt Rate 42; Glucose 154 mg/dL (65-110); Phosphorus 4.6 mg/dL (2.5-4.5); Potassium 3.6 mmol/L (3.4-5.0); Sodium 142 mmol/L (137-145)
[2021-06-28 07:32] LABS: Glucose Point of Care 147 mg/dl (65-105)
[2021-06-28 08:19] VITALS: PULSE 73
[2021-06-28] MEDS: MEMANTINE 5 MG TABLET PO (08:19)
[2021-06-28] MEDS: ASPIRIN 81 MG ENTERIC TABLET PO (08:19)
[2021-06-28] MEDS: MULTIVITAMINS THERAPEUTIC TAB (*BKC) 1 TABLET PO (08:19)
[2021-06-28] MEDS: CLOPIDOGREL BISULFATE 75 MG TABLET PO (08:19)
[2021-06-28] MEDS: carvediloL 12.5 MG TABLET PO ×2 (08:19→17:09)
[2021-06-28] MEDS: THEOPHYLLINE ANHYDROUS 200 MG ER 24 HR CAPSULE 400 MG PO (08:20)
[2021-06-28] MEDS: HEPARIN SODIUM 5,000 UNITS/ML VIAL 5000 UNITS SUB-Q ×2 (08:20→20:12)
[2021-06-28 11:23] LABS: Glucose Point of Care 150 mg/dl (65-105)
--- NOTE | 2021-06-28 13:06 | PM.IMPN ---
Progress Note: A&P Assessment and Plan (1) BISI (acute kidney injury): Code(s): N17.9 - Acute kidney failure, unspecified Status: Acute Assessment and Plan: Patient's baseline creatinine is 1.3. And has improved to 1.6 today from 3.2 on admission. We trialed him without IV fluids today, however the nursing staff state he requires hourly reminders to drink and is not drinking adequately on his own. He did not eat his breakfast. Bladder scan showed he was retaining 500mL residual volume and he has thus far refused to urinate. Renal ultrasound showed normal kidneys without hydronephrosis. Small amount of layering debris in the bladder. Likely etiology volume depletion. -We will continue to encourage fluid intake today and see how he does today. Will reassess in the AM. -Strict I & Os -Continue to trend Cr. -Bladder scan and straight cath Q 4 hrs. (2) Stage 3a chronic kidney disease: Code(s): N18.31 - Chronic kidney disease, stage 3a Status: Chronic Assessment and Plan: Baseline creatinine 1.2-1.3. Nephrology is following . (3) Rhabdomyolysis: Code(s): M62.82 - Rhabdomyolysis Status: Acute Assessment and Plan: -Continue to trend CK. Waiting on today's labs. Yesterday 357 up from 320 yesterday. Will continue to trend. (4) Diabetes mellitus: Code(s): E11.9 - Type 2 diabetes mellitus without complications Status: Chronic Assessment and Plan: Home metformin and glipizide were held upon admission. Patient is on low-dose sliding scale as well as 10 units Lantus daily. His sugars are well-controlled here. - Check A1C. - Continue low-dose sliding scale and Lantus. - Continue accuchecks, hypoglycemic protocol. (5) Hypertension: Code(s): I10 - Essential (primary) hypertension Status: Chronic Assessment and Plan: Losartan was held upon admission. Patient remains borderline hypertensive. Continue home carvedilol. (6) Dementia of the Alzheimer's type: Qualifiers: Alzheimer's disease onset: unspecified onset Dementia behavioral disturbance: without behavioral disturbance Qualified Code(s): G30.9 - Alzheimer's disease, unspecified; F02.80 - Dementia in other diseases classified elsewhere without behavioral disturbance Code(s): G30.9 - Alzheimer's disease, unspecified; F02.80 - Dementia in other diseases classified elsewhere without behavioral disturbance Status: Acute Assessment and Plan: Continue donepezil. (7) DVT prophylaxis: Code(s): Z29.9 - Encounter for prophylactic measures, unspecified Status: Acute Assessment and Plan: Continue SCDs & Heparin 5,000 Units Q 12 hrs. Additional Plan career development coordinator/teacher has placement for this patient upon eventual discharge. Patient will require Covid test prior to D/C. Subjective Date/time seen: 06/28/21 13:06 Mr. Pacheco is a 76-year-old male with past medical history of diabetes mellitus, dementia, hypertension, rectal cancer with ostomy, who is admitted here for BISI x 2 days. He is a poor historian. He was resting comfortably this morning and stated he was doing just fine when asked if he had chest or abdominal pain, difficulty breathing. Review of Systems Review of Systems: All systems reviewed & are unremarkable except as noted in HPI and below Exam Narrative: He was resting comforbably in his bed on his side this morning. He responded to all my commands. Const: General: no acute distress Eyes: General: appearance normal, both eyes and all related structures Neck: Neck: no JVD Resp: Auscultation: clear to auscultation bilaterally Cardio: Rate: regular rate Rhythm: regular rhythm GI: Inspection: non-distended GI Palp: Yes Soft to palpation, No Tenderness to palpation present (GI) and No Guarding due to palpation present (GI) Auscultation: normal bowel sounds Other: Ostomy present in LLQ : Other: Patient is wearing a
--- NOTE | 2021-06-28 13:15 | P.PNNP_ITS ---
Progress Note: A&P Assessment and Plan (1) BISI (acute kidney injury): Code(s): N17.9 - Acute kidney failure, unspecified Status: Acute Assessment and Plan: * presumably due to volume depletion and an element of urinary retention * nursing notes not drinking very much and retaining urine by bladder scan * does he need a G-tube?? * evaluation to date: * renal ultrasound without obstruction -- possible chronic cystitis(?) * urine electrolyte are non-prerenal * appears to be responding to current therapy * follow repeat labs and UOP (2) Stage 3a chronic kidney disease: Code(s): N18.31 - Chronic kidney disease, stage 3a Status: Chronic Assessment and Plan: * baseline creatinine runs 1.2 - 1.3mg/dl * mild renal insufficiency due to DM, HTN, vascular disease, and age (3) Acute UTI: Code(s): N39.0 - Urinary tract infection, site not specified Status: Acute Assessment and Plan: * as noted by admission urinalysis * however, urine culture negative (4) Hypertension: Code(s): I10 - Essential (primary) hypertension Status: Chronic Assessment and Plan: * reasonable control at this time * follow trend of hemodynamics (5) Diabetes mellitus: Code(s): E11.9 - Type 2 diabetes mellitus without complications Status: Chronic Assessment and Plan: * follow accuchecks * on SSI and Lantus Will continue to follow. Subjective Date/time seen: 06/28/21 13:15 No new issues or problems to report; denies any acute complaints at this time; n o events overnight or earlier this AM; renal function continues to slowly improve as well. Exam Narrative: General: elderly male in NAD Heart: normal S1 and S2; no rub Lungs: clear to auscultation Abdomen: soft, nontender, nondistended, positive bowel sounds Extremities: no cyanosis or clubbing; no edema Skin: warm and intact Objective Data Vital Signs Vital Signs: Vital Signs Temp Pulse Resp BP Pulse Ox 06/28/21 08:19 73 06/28/21 06:11 36.6 C 60 16 148/58 H 99 06/27/21 20:21 36.6 C 68 16 106/48 L 97 Intake/Output Intake/Output: Intake & Output 06/25/21 06/26/21 06/27/21 06/28/21 23:59 23:59 23:59 23:59 Intake Total 50 1050 1610 240 Output Total 450 450 50 501 Balance -757 271 3163 -261 Meds/Results Medications: Active Medications Generic Name Dose Route Start Last Admin Trade Name Freq PRN Reason Stop Dose Admin Acetaminophen 650 mg 06/25/21 17:55 Acetaminophen 325 Mg Tablet PO Q4H PRN Mild Pain (1-3) or Fever Aspirin 81 mg 06/26/21 09:00 06/28/21 08:19 Aspirin 81 Mg Enteric Tablet PO 81 mg DAILY ANGELINA Administration Atorvastatin Calcium 20 mg 06/25/21 21:00 06/27/21 20:26 Atorvastatin 20 Mg Tablet PO 20 mg HS ANGELINA Administration Carvedilol 12.5 mg 06/26/21 09:00 06/28/21 08:19 Carvedilol 12.5 Mg Tablet PO 12.5 mg BID ANGELINA Administration Clopidogrel Bisulfate 75 mg 06/26/21 09:00 06/28/21 08:19 Clopidogrel Bisulfate 75 Mg Tablet PO 75 mg DAILY ANGELINA Administration Dextrose 12.5 gm 06/25/21 20:22 Dextrose 50% 25 Gm/50 Ml Syr
--- NOTE | 2021-06-28 13:15 | PM.PNNEP ---
Progress Note: A&P Assessment and Plan (1) BISI (acute kidney injury): Code(s): N17.9 - Acute kidney failure, unspecified Status: Acute Assessment and Plan: presumably due to volume depletion and an element of urinary retention nursing notes not drinking very much and retaining urine by bladder scan does he need a G-tube?? evaluation to date: renal ultrasound without obstruction -- possible chronic cystitis(?) urine electrolyte are non-prerenal appears to be responding to current therapy follow repeat labs and UOP (2) Stage 3a chronic kidney disease: Code(s): N18.31 - Chronic kidney disease, stage 3a Status: Chronic Assessment and Plan: baseline creatinine runs 1.2 - 1.3mg/dl mild renal insufficiency due to DM, HTN, vascular disease, and age (3) Acute UTI: Code(s): N39.0 - Urinary tract infection, site not specified Status: Acute Assessment and Plan: as noted by admission urinalysis however, urine culture negative (4) Hypertension: Code(s): I10 - Essential (primary) hypertension Status: Chronic Assessment and Plan: reasonable control at this time follow trend of hemodynamics (5) Diabetes mellitus: Code(s): E11.9 - Type 2 diabetes mellitus without complications Status: Chronic Assessment and Plan: follow accuchecks on SSI and Lantus Will continue to follow. Subjective Date/time seen: 06/28/21 13:15 No new issues or problems to report; denies any acute complaints at this time; no events overnight or earlier this AM; renal function continues to slowly improve as well. Exam Narrative: General: elderly male in NAD Heart: normal S1 and S2; no rub Lungs: clear to auscultation Abdomen: soft, nontender, nondistended, positive bowel sounds Extremities: no cyanosis or clubbing; no edema Skin: warm and intact Objective Data Vital Signs Vital Signs: Vital Signs Temp Pulse Resp BP Pulse Ox 06/28/21 08:19 73 06/28/21 06:11 36.6 C 60 16 148/58 H 99 06/27/21 20:21 36.6 C 68 16 106/48 L 97 Intake/Output Intake/Output: Intake & Output 06/25/21 06/26/21 06/27/21 06/28/21 23:59 23:59 23:59 23:59 Intake Total 50 1050 1610 240 Output Total 450 450 50 501 Balance -025 779 5407 -344 Meds/Results Medications: Active Medications Generic Name Dose Route Start Last Admin Trade Name Donta PRN Reason Stop Dose Admin Acetaminophen 650 mg 06/25/21 17:55 Acetaminophen 325 Mg Tablet PO Q4H PRN Mild Pain (1-3) or Fever Aspirin 81 mg 06/26/21 09:00 06/28/21 08:19 Aspirin 81 Mg Enteric Tablet PO 81 mg DAILY ANGELINA Administration Atorvastatin Calcium 20 mg 06/25/21 21:00 06/27/21 20:26 Atorvastatin 20 Mg Tablet PO 20 mg HS ANGELINA Administration Carvedilol 12.5 mg 06/26/21 09:00 06/28/21 08:19 Carvedilol 12.5 Mg Tablet PO 12.5 mg BID ANGELINA Administration Clopidogrel Bisulfate 75 mg 06/26/21 09:00 06/28/21 08:19 Clopidogrel Bisulfate 75 Mg Tablet PO 75 mg DAILY ANGELINA Administration Dextrose 12.5 gm 06/25/21 20:22 Dextrose 50% 25 Gm/50 Ml Syringe IV PUSH PRN PRN Hypoglycemia Protocol Donepezil HCl 10 mg 06/25/21 21:00 06/27/21 20:26 Donepezil Hcl 10 Mg Tablet PO 10 mg HS ANGELINA Administration Glucagon 1 mg 06/25/21 20:22 Glucagon For Inj 1 Mg Vial IM PRN PRN Hypoglycemia Protocol Glucose 15 gm 06/25/21 20:22 Glucose Oral Gel 15 Gm Of Glucse In 37.5 Gm Tube PO PRN PRN Hypoglycemia Protocol Heparin Sodium (Porcine) 5,000 units 06/25/21 21:00 06/28/21 08:20 Heparin Sodium 5,000 Units/Ml Vial SUB-Q 5,000 units Q12HR ANGELINA Administration Dextrose 1,000 mls @ 100 mls/hr 06/25/21 20:22 Dextrose 5% 1,000 Ml IVPB PRN PRN Hypoglycemia Protocol Insulin Aspart 2 - 5 units 06/26/21 08:00 06/28/21 11:22 Insulin Asp
[2021-06-28 14:32] LABS: Creatine Kinase 135 U/L (55-170)
[2021-06-28 16:42] LABS: Glucose Point of Care 233 mg/dl (65-105)
[2021-06-28] MEDS: INSULIN ASPART (*BKC) 100 UNITS/ML SUB-Q (17:08)
[2021-06-28 17:09] VITALS: PULSE 62
[2021-06-28] MEDS: INSULIN GLARGINE (*BKC) 100 UNITS/ML 10 UNITS SUB-Q (17:09)
[2021-06-28 17:11] VITALS: BP 154/70; PULSE 59; RESP 16; O2SAT 100
[2021-06-28 19:57] LABS: Glucose Point of Care 209 mg/dl (65-105)
[2021-06-28] MEDS: MELATONIN 5 MG TABLET PO (20:12)
[2021-06-28] MEDS: MIRTAZAPINE 30 MG TABLET PO (20:12)
[2021-06-28] MEDS: PANTOPRAZOLE SOD SESQUIHYDRATE 20 MG TAB PO (20:12)
[2021-06-28] MEDS: DONEPEZIL HCL 10 MG TABLET PO (20:12)
[2021-06-28] MEDS: SERTRALINE HCL 50 MG TABLET PO (20:12)
[2021-06-28] MEDS: ATORVASTATIN 20 MG TABLET PO (20:12)
[2021-06-28 20:41] VITALS: BP 158/57; PULSE 62; RESP 18; TEMP 36.6; O2SAT 100
[2021-06-28 20:49] VITALS: O2SAT 100
[2021-06-29 04:06] VITALS: BP 172/69; PULSE 64; RESP 18; TEMP 36.6; O2SAT 100
[2021-06-29 06:05] LABS: Albumin Level 3.5 g/dL (3.5-5.1); Anion Gap 7 mmol/L (8-16); Blood Urea Nitrogen 31 mg/dL (9-20); Calcium 8.1 mg/dL (8.4-10.2); Carbon Dioxide 23 mmol/L (22-30); Chloride 109 mmol/L (98-107); Estimated CRCL calculation 31 ml/min; Estimated Glomerular Filt Rate 42; Glucose 168 mg/dL (65-110); Phosphorus 3.8 mg/dL (2.5-4.5); Potassium 3.7 mmol/L (3.4-5.0); Sodium 139 mmol/L (137-145)
[2021-06-29 07:33] LABS: Glucose Point of Care 155 mg/dl (65-105)
[2021-06-29 08:04] VITALS: PULSE 68
[2021-06-29] MEDS: THEOPHYLLINE ANHYDROUS 200 MG ER 24 HR CAPSULE 400 MG PO (08:04)
[2021-06-29] MEDS: ASPIRIN 81 MG ENTERIC TABLET PO (08:04)
[2021-06-29] MEDS: MEMANTINE 5 MG TABLET PO (08:04)
[2021-06-29] MEDS: MULTIVITAMINS THERAPEUTIC TAB (*BKC) 1 TABLET PO (08:04)
[2021-06-29] MEDS: CLOPIDOGREL BISULFATE 75 MG TABLET PO (08:04)
[2021-06-29] MEDS: HEPARIN SODIUM 5,000 UNITS/ML VIAL 5000 UNITS SUB-Q ×2 (08:04→19:38)
[2021-06-29] MEDS: carvediloL 12.5 MG TABLET PO ×2 (08:04→17:03)
--- NOTE | 2021-06-29 10:18 | PM.IMPN ---
Progress Note: A&P Assessment and Plan (1) BISI (acute kidney injury): Code(s): N17.9 - Acute kidney failure, unspecified Status: Acute Assessment and Plan: Patient's baseline creatinine is 1.3, 1.6 today. We trialed him without IV fluids over last 24hrs, and his renal functions have remained stable. However his intake was only 360 mL with output 726 mL, suspect he is not taking food or fluids in at his baseline, due to decreased cognitive function. He did not eat his breakfast today, despite my conversations with him, encouraging him to eat. He was retaining urine yesterday and straight cath was used. Nephrology is following. They mentioned the possibility of G-tube placement for long-term nutrition and fluid repletion, assess BISI is likely volume related. We will see how he does eating and drinking today and discuss with his healthcare power of horseradish maker on Wednesday. -We will continue to encourage fluid intake today and see how he does today. Will reassess in the AM. -Strict I & Os -Continue to trend Cr -Bladder scan and straight cath as needed. (2) Stage 3a chronic kidney disease: Code(s): N18.31 - Chronic kidney disease, stage 3a Status: Chronic Assessment and Plan: Baseline creatinine 1.2-1.3. Nephrology is following. (3) Rhabdomyolysis: Code(s): M62.82 - Rhabdomyolysis Status: Acute Assessment and Plan: CK has normalized to 135 as of 06/28. (4) Diabetes mellitus: Code(s): E11.9 - Type 2 diabetes mellitus without complications Status: Chronic Assessment and Plan: Home metformin and glipizide were held upon admission. Patient is on low-dose sliding scale as well as 10 units Lantus daily. His sugars are fairly well-controlled here, aside from 2 POC glucose readings yesterday of 233 and 209 at 4PM and 7:00 p.m. A1C is 7.5, so we may want to optimize his diabetic regimen upon discharge. - Continue low-dose sliding scale and Lantus. - Continue accuchecks, hypoglycemic protocol. (5) Hypertension: Code(s): I10 - Essential (primary) hypertension Status: Chronic Assessment and Plan: Patient is hypertensive today at 172/69. Losartan was held upon admission, due to BISI, however, he has recovered with rehydration. - Restart home Losartan, monitor Cr for response. - Continue home carvedilol. (6) Dementia of the Alzheimer's type: Qualifiers: Alzheimer's disease onset: unspecified onset Dementia behavioral disturbance: without behavioral disturbance Qualified Code(s): G30.9 - Alzheimer's disease, unspecified; F02.80 - Dementia in other diseases classified elsewhere without behavioral disturbance Code(s): G30.9 - Alzheimer's disease, unspecified; F02.80 - Dementia in other diseases classified elsewhere without behavioral disturbance Status: Acute Assessment and Plan: -Continue donepezil and Memantine. (7) DVT prophylaxis: Code(s): Z29.9 - Encounter for prophylactic measures, unspecified Status: Acute Assessment and Plan: Continue SCDs & Heparin 5,000 Units Q 12 hrs. Additional Plan -care transition coordinator is working placement for this patient upon discharge. Patient will require Covid test prior to D/C. Subjective Date/time seen: 06/29/21 10:18 Mr. John is a 76-year-old male with past medical history of diabetes mellitus, dementia, hypertension, rectal cancer with ostomy, who is admitted here for BISI x3 days. He is a poor historian, however he was much more lucid this morning in discussing his breakfast with me. He states he is not enjoying the food in the hospital does not wish to eat it. He denies chest pain, shortness a breath, abdominal pain, difficulty urinating or defecating. He has no additional complaints. Review of Systems Review of Systems: All systems reviewed & are unremarkable except as noted in HPI and below Exam Narrative: GENERAL APPEAR
[2021-06-29 11:42] LABS: Glucose Point of Care 265 mg/dl (65-105)
[2021-06-29] MEDS: INSULIN ASPART (*BKC) 100 UNITS/ML SUB-Q ×2 (12:16→17:02)
--- NOTE | 2021-06-29 12:32 | PM.PNNEP ---
Progress Note: A&P Assessment and Plan (1) BISI (acute kidney injury): Code(s): N17.9 - Acute kidney failure, unspecified Status: Acute Assessment and Plan: presumably due to volume depletion and an element of urinary retention still not eating/drinking very much and retaining urine by bladder scan G-tube needed for consistent nutrition(?) evaluation to date: renal ultrasound without obstruction -- possible chronic cystitis(?) urine electrolyte are non-prerenal appears to be responding to current therapy follow repeat labs and UOP (2) Stage 3a chronic kidney disease: Code(s): N18.31 - Chronic kidney disease, stage 3a Status: Chronic Assessment and Plan: baseline creatinine runs 1.2 - 1.3mg/dl mild renal insufficiency due to DM, HTN, vascular disease, and age (3) Acute UTI: Code(s): N39.0 - Urinary tract infection, site not specified Status: Acute Assessment and Plan: as noted by admission urinalysis however, urine culture negative (4) Hypertension: Code(s): I10 - Essential (primary) hypertension Status: Chronic Assessment and Plan: reasonable control at this time follow trend of hemodynamics (5) Diabetes mellitus: Code(s): E11.9 - Type 2 diabetes mellitus without complications Status: Chronic Assessment and Plan: follow accuchecks on SSI and Lantus Will continue to follow. Subjective Date/time seen: 06/29/21 12:32 Mentation appears the same - communicative but dementia limits history and validity of what he says; oral intake remains suboptimal and still with issues related to urinary retention; no apparent issues/events overnight or earlier this AM. Exam Narrative: General: elderly male in NAD Heart: normal S1 and S2; no rub Lungs: clear to auscultation Abdomen: soft, nontender, nondistended, positive bowel sounds Extremities: no cyanosis or clubbing; no edema Skin: no rash Objective Data Vital Signs Vital Signs: Vital Signs Temp Pulse Resp BP Pulse Ox 06/29/21 08:04 68 06/29/21 04:06 36.6 C 64 18 172/69 H 100 06/28/21 20:49 100 06/28/21 20:41 36.6 C 62 18 158/57 H 100 06/28/21 17:11 59 L 16 154/70 H 100 06/28/21 17:09 62 Intake/Output Intake/Output: Intake & Output 06/26/21 06/27/21 06/28/21 06/29/21 23:59 23:59 23:59 23:59 Intake Total 1050 1610 360 810 Output Total 450 50 726 300 Balance 600 1560 -366 510 Meds/Results Medications: Active Medications Generic Name Dose Route Start Last Admin Trade Name Apolloq PRN Reason Stop Dose Admin Acetaminophen 650 mg 06/25/21 17:55 Acetaminophen 325 Mg Tablet PO Q4H PRN Mild Pain (1-3) or Fever Aspirin 81 mg 06/26/21 09:00 06/29/21 08:04 Aspirin 81 Mg Enteric Tablet PO 81 mg DAILY ANGELINA Administration Atorvastatin Calcium 20 mg 06/25/21 21:00 06/28/21 20:12 Atorvastatin 20 Mg Tablet PO 20 mg HS ANGELINA Administration Carvedilol 12.5 mg 06/26/21 09:00 06/29/21 08:04 Carvedilol 12.5 Mg Tablet PO 12.5 mg BID ANGELINA Administration Clopidogrel Bisulfate 75 mg 06/26/21 09:00 06/29/21 08:04 Clopidogrel Bisulfate 75 Mg Tablet PO 75 mg DAILY ANGELINA Administration Dextrose 12.5 gm 06/25/21 20:22 Dextrose 50% 25 Gm/50 Ml Syringe IV PUSH PRN PRN Hypoglycemia Protocol Donepezil HCl 10 mg 06/25/21 21:00 06/28/21 20:12 Donepezil Hcl 10 Mg Tablet PO 10 mg HS ANGELINA Administration Glucagon 1 mg 06/25/21 20:22 Glucagon For Inj 1 Mg Vial IM PRN PRN Hypoglycemia Protocol Glucose 15 gm 06/25/21 20:22 Glucose Oral Gel 15 Gm Of Glucse In 37.5 Gm Tube PO PRN PRN Hypoglycemia Protocol Heparin Sodium (Porcine) 5,000 units 06/25/21 21:00 06/29/21 08:04 Heparin Sodium 5,000 Units/Ml Vial SUB-Q 5,000 units Q12HR ANGELINA Administration Dextrose 1,000 mls @ 100
[2021-06-29 14:00] VITALS: BP 138/45; PULSE 57; RESP 16; TEMP 35.4; O2SAT 100
[2021-06-29 16:27] LABS: Glucose Point of Care 212 mg/dl (65-105)
[2021-06-29] MEDS: INSULIN GLARGINE (*BKC) 100 UNITS/ML 10 UNITS SUB-Q (17:02)
[2021-06-29 17:03] VITALS: PULSE 60
[2021-06-29] MEDS: MELATONIN 5 MG TABLET PO (19:37)
[2021-06-29] MEDS: MIRTAZAPINE 30 MG TABLET PO (19:38)
[2021-06-29] MEDS: PANTOPRAZOLE SOD SESQUIHYDRATE 20 MG TAB PO (19:38)
[2021-06-29] MEDS: ATORVASTATIN 20 MG TABLET PO (19:38)
[2021-06-29] MEDS: SERTRALINE HCL 50 MG TABLET PO (19:38)
[2021-06-29] MEDS: DONEPEZIL HCL 10 MG TABLET PO (19:38)
[2021-06-29 19:46] LABS: Glucose Point of Care 310 mg/dl (65-105)
[2021-06-29 19:54] VITALS: BP 128/67; PULSE 60; RESP 18; TEMP 36.4; O2SAT 98
[2021-06-30 05:01] VITALS: BP 148/81; PULSE 63; RESP 16; TEMP 36.6; O2SAT 98
[2021-06-30 06:05] LABS: Albumin Level 3.2 g/dL (3.5-5.1); Anion Gap 6 mmol/L (8-16); Blood Urea Nitrogen 22 mg/dL (9-20); Calcium 7.8 mg/dL (8.4-10.2); Carbon Dioxide 24 mmol/L (22-30); Chloride 108 mmol/L (98-107); Estimated CRCL calculation 33 ml/min; Estimated Glomerular Filt Rate 46; Glucose 180 mg/dL (65-110); Phosphorus 3.6 mg/dL (2.5-4.5); Potassium 3.6 mmol/L (3.4-5.0); Sodium 138 mmol/L (137-145)
[2021-06-30 07:39] LABS: Glucose Point of Care 180 mg/dl (65-105)
[2021-06-30 08:01] LABS: Basophils Percent Auto 0.5 % (0.2-1.2); Eosinophils Absolute Auto 0.7 K/mm3 (0-0.3); Eosinophils Percent Auto 8.8 % (0-4.4); Hematocrit 25.6 % (42.0-52.0); Hemoglobin 8.3 g/dL (14.0-18.0); Immature Granulocyte Absolute 0.03 K/mm3 (0.00-0.031); Immature Granulocyte Percent A 0.4 % (0-0.5); Mean Corpuscular HGB Conc 32.4 g/dl (32-36); Mean Corpuscular Hemoglobin 30.1 pg (26-34); Mean Corpuscular Volume 92.8 fl (80-100); Mean Platelet Volume 9.1 fl (7.4-10.4); Monocytes Absolute Auto 0.7 K/mm3 (0.1-0.6); Monocytes Percent Auto 9.2 % (2.6-8.5); Neutrophils Absolute Auto 4.5 K/mm3 (1.3-6.7); Neutrophils Percent Auto 57.1 % (45.5-73.1); Platelet Count Result 365 k/mm3 (150-375); Red Blood Count 2.76 M/mm3 (4.6-6.20); Red Cell Distribution Width 13.4 % (11.5-14.5); White Blood Count 7.9 K/mm3 (4.5-10.0)
[2021-06-30] MEDS: LOSARTAN POTASSIUM 100 MG TABLET PO (08:04)
[2021-06-30] MEDS: THEOPHYLLINE ANHYDROUS 200 MG ER 24 HR CAPSULE 400 MG PO (08:04)
[2021-06-30] MEDS: CLOPIDOGREL BISULFATE 75 MG TABLET PO (08:05)
[2021-06-30] MEDS: carvediloL 12.5 MG TABLET PO ×2 (08:05→16:32)
[2021-06-30] MEDS: HEPARIN SODIUM 5,000 UNITS/ML VIAL 5000 UNITS SUB-Q (08:05)
[2021-06-30] MEDS: MEMANTINE 5 MG TABLET PO (08:05)
[2021-06-30] MEDS: MULTIVITAMINS THERAPEUTIC TAB (*BKC) 1 TABLET PO (08:05)
[2021-06-30] MEDS: ASPIRIN 81 MG ENTERIC TABLET PO (08:05)
[2021-06-30 11:18] LABS: Glucose Point of Care 254 mg/dl (65-105)
[2021-06-30] MEDS: INSULIN ASPART (*BKC) 100 UNITS/ML SUB-Q (11:48)
--- NOTE | 2021-06-30 11:50 | PM.DS ---
DS: Admitting Diagnosis Discharge Date 06/30/21 1400 <Anna ElmerLaura Chambers PA-C - Last Filed: 06/30/21 15:00> Admitting Diagnosis BISI <Anna R. ALCIDES Chambers - Last Filed: 06/30/21 15:00> DS: Summary Hospital Course Reason for hospitalization: BISI <Anna R. ALCIDES Chambers - Last Filed: 06/30/21 15:00> Hospital Course: Mr. Pacheco is a 76 year old male with alzheimer's disease, diabetes, mellitus, hypertension, and CKD who was admitted to our care from an extended care facility for abnormal labs. BUN 73/ Cr 3.2 upon admission. Urine culture returned no growth, and renal US showed normal kidneys without hydronephrosis and a small amount of layering debris in the bladder. CK was elevated at 320 at time of admit, however this normalized after IV fluids. We consulted with nephrology who advised his baseline Cr was 1.2-1.3, and this was likely due to volume depletion and an element of urinary retention. His Cr returned to 1.5 today. 06/25- 06/27 We provided IV fluid rehydration from and Cr dropped to 1.9. 06/28 We held IV fluids and trialed oral rehydration. Mr. Pacheco's oral intake was 360ml, output 726ml. He was found to be retaining urine, necessitating straight catheterization. 06/29 Oral intake was adequate at 1590 ml, output 750ml. He continued to retain urine, and a soler catheter was placed to get better accountability of his Is & Os. He is eating and drinking very well today after encouragement. It appears that he is not intrinsically well-motivated to eat or drink, and stated to me I eat when the food is good . Patient will be discharged with the soler in place, and proceed with a voiding trial in 1-2 weeks. Frequent ambulation is encouraged. Diabetic medications were held during his admission, and we have utilized 10U of insulin glargine daily and 0-5U of insulin aspart with low-dose sliding scale and good glycemic control. Will discontinue his glipizide upon discharge, will restart him on metformin, and continue his home insulin regimen. He continued his alzheimer's treatment during his stay here, both donepezil, and memantine. He had varying levels of lucidity during his stay, from totally coherent to jalil expressive aphasia. Losartan was held temporarily, but was restarted after improvement in Cr, and he continued his Carvedilol. He had good hypertensive control. Will continue his current outpatient regimen. We utilized SCDs and Heparin 5,000 U Q 12 hrs for DVT prophylaxis. <Anna Chambers PA-C - Last Filed: 06/30/21 15:00> Status at Discharge Functional status at discharge: independent ambulation <Anna Chambers PA-C - Last Filed: 06/30/21 15:00> Overall status at discharge: patient is progressing back to baseline <ALCIDES Cowan Last Filed: 06/30/21 15:00> Time Spent with Patient Time attestation: Total time spent providing and/or coordinating discharge services:45 <ALCIDES Cowan Last Filed: 06/30/21 15:00> Time spent: Greater than 30 minutes <ALCIDES Cowan Last Filed: 06/30/21 15:00> Exam Narrative: GENERAL APPEARANCE: Oriented to self only today. In no apparent distress, though he is tired today. HEENT: PERRL, EOMI. Sclerae anicteric. Moist mucous membranes. NECK: Supple. No JVD or obvious carotid bruits. RESPIRATORY: Respirations are nonlabored. Breath sounds are equal and clear bilaterally. No wheezes, Rhonchi, or rales. CARDIOVASCULAR: Regular rate and rhythm with normal S1-S2. No murmurs, gallops, or rubs. GASTROINTESTINAL: Soft, flat, and benign. No mass, tenderness, guarding, or rebound. No organomegaly or hernia. Bowel sounds are present. Ostomy with bag present in LLQ, no stool present. SKIN: Warm, dry, well perfused. Good turgor. No lesions, nodules, or rashes noted. Warm and dry. No rash or lesions on limited exam. EXTREMITIES: No cyanosis, clubbing, or edema. Radial and pedal pulses intact. NEUROLOGICAL:
[2021-06-30 12:04] LABS: EDCOVIDSCREEN Negative (Negative)
--- NOTE | 2021-06-30 13:49 | PM.PNNEP ---
Progress Note: A&P Assessment and Plan (1) BISI (acute kidney injury): Code(s): N17.9 - Acute kidney failure, unspecified Status: Acute Assessment and Plan: presumably due to volume depletion and an element of urinary retention still not eating/drinking very much and retaining urine by bladder scan G-tube needed for consistent nutrition(?) evaluation to date: renal ultrasound without obstruction -- possible chronic cystitis(?) urine electrolyte are non-prerenal his creatinine has dropped from 3.2 to current level of 1.5. follow repeat labs and UOP (2) Stage 3a chronic kidney disease: Code(s): N18.31 - Chronic kidney disease, stage 3a Status: Chronic Assessment and Plan: baseline creatinine runs 1.2 - 1.3mg/dl mild renal insufficiency due to DM, HTN, vascular disease, and age (3) Acute UTI: Code(s): N39.0 - Urinary tract infection, site not specified Status: Acute Assessment and Plan: Urine culture negative. (4) Hypertension: Code(s): I10 - Essential (primary) hypertension Status: Chronic Assessment and Plan: Systolic between 120 and 150. (5) Diabetes mellitus: Code(s): E11.9 - Type 2 diabetes mellitus without complications Status: Chronic Assessment and Plan: On Accu-Cheks and sliding-scale insulin pump per hospitalist. Subjective Date/time seen: 06/30/21 13:49 Interval history: Shane is feeling okay. He is eating some breakfast. No chest pain or shortness of breath. Exam Narrative: General: elderly male in NAD Heart: normal S1 and S2; no rub Lungs: clear Abdomen: soft, nontender, nondistended, positive bowel sounds Extremities: no cyanosis or clubbing; no edema Skin: no rash Or subcu nodules Objective Data Vital Signs Vital Signs: Vital Signs - 24 hr 06/29/21 14:00 06/29/21 17:03 06/29/21 19:54 Temperature 35.4 C L 36.4 C Pulse Rate 57 L 60 60 Respiratory Rate 16 18 Blood Pressure 138/45 L 128/67 Pulse Oximetry 100 98 06/30/21 05:01 Temperature 36.6 C Pulse Rate 63 Respiratory Rate 16 Blood Pressure 148/81 H Pulse Oximetry 98 Intake/Output Intake/Output: Intake & Output 06/27/21 06/28/21 06/29/2104/22 23:59 23:59 23:59 23:59 Intake Total 8754 712 4238 620 Output Total 50 726 750 600 Balance 1560 -366 840 20 Meds/Results Medications: Active Medications Generic Name Dose Route Start Last Admin Trade Name Freq PRN Reason Stop Dose Admin Acetaminophen 650 mg 06/25/21 17:55 Acetaminophen 325 Mg Tablet PO Q4H PRN Mild Pain (1-3) or Fever Aspirin 81 mg 06/26/21 09:00 06/30/21 08:05 Aspirin 81 Mg Enteric Tablet PO 81 mg DAILY ANGELINA Administration Atorvastatin Calcium 20 mg 06/25/21 21:00 06/29/21 19:38 Atorvastatin 20 Mg Tablet PO 20 mg HS ANGELINA Administration Carvedilol 12.5 mg 06/26/21 09:00 06/30/21 08:05 Carvedilol 12.5 Mg Tablet PO 12.5 mg BID ANGELINA Administration Clopidogrel Bisulfate 75 mg 06/26/21 09:00 06/30/21 08:05 Clopidogrel Bisulfate 75 Mg Tablet PO 75 mg DAILY ANGELINA Administration Dextrose 12.5 gm 06/25/21 20:22 Dextrose 50% 25 Gm/50 Ml Syringe IV PUSH PRN PRN Hypoglycemia Protocol Donepezil HCl 10 mg 06/25/21 21:00 06/29/21 19:38 Donepezil Hcl 10 Mg Tablet PO 10 mg HS ANGELINA Administration Glucagon 1 mg 06/25/21 20:22 Glucagon For Inj 1 Mg Vial IM PRN PRN Hypoglycemia Protocol Glucose 15 gm 06/25/21 20:22 Glucose Oral Gel 15 Gm Of Glucse In 37.5 Gm Tube PO PRN PRN Hypoglycemia Protocol Heparin Sodium (Porcine) 5,000 units 06/25/21 21:00 06/30/21 08:05 Heparin Sodium 5,000 Units/Ml Vial SUB-Q 5,000 units Q12HR ANGELINA Administration Dextrose 1,000 mls @ 100 mls/hr 06/25/21 20:22 Dextrose 5% 1,000 Ml IVPB PRN PRN Hypoglycemia Protocol Insulin Aspart
[2021-06-30 14:10] VITALS: BP 112/64; PULSE 57; RESP 16; TEMP 36.4; O2SAT 97
[2021-06-30 14:14] LABS: Chloride Rand Ur 66 mmol/L (32-290); Chloride/Creatinine Rand Ur 89 (23-275); Creatinine Random Urine 74 mg/dL (20-320)
[2021-06-30 16:30] LABS: Glucose Point of Care 211 mg/dl (65-105)
--- NOTE | 2021-07-02 10:05 | PC.NURSE ---
Order faxed to [facility] instructing staff to hold Metformin until patient sees PCP or NH physician. JAYA Lopez gave this order.
== END 2021-06-30 18:14 | DRG 683 ==
LOC: ANHED 18:00 → ANH3MED 20:05
PROVIDERS: Internal Medicine Nephrology; Nurse Practitioner; Admitting Provider Family Medicine; Emergency Provider Family Medicine; PCP Physician Assistant; Visit Provider Student in an Organized Health Care Education/Training Program
DX: N17.9 Acute kidney failure, unspecified (principal); M62.82 Rhabdomyolysis; E87.2 Acidosis; E86.0 Dehydration; R33.9 Retention of urine, unspecified; Z20.822 Contact with and (suspected) exposure to COVID-19; D64.9 Anemia, unspecified; D72.10 Eosinophilia, unspecified; E11.22 Type 2 diabetes mellitus with diabetic chronic kidney disease; E78.5 Hyperlipidemia, unspecified; F17.210 Nicotine dependence, cigarettes, uncomplicated; E11.649 Type 2 diabetes mellitus with hypoglycemia without coma; F02.80 Dementia in other diseases classified elsewhere, unspecified severity, without behavioral disturbance, psychotic disturbance, mood disturbance, and anxiety; G30.9 Alzheimer's disease, unspecified; I12.9 Hypertensive chronic kidney disease with stage 1 through stage 4 chronic kidney disease, or unspecified chronic kidney disease; N18.31 Chronic kidney disease, stage 3a; Z85.038 Personal history of other malignant neoplasm of large intestine; Z86.16 Personal history of COVID-19; Z93.3 Colostomy status; Z79.84 Long term (current) use of oral hypoglycemic drugs; Z79.82 Long term (current) use of aspirin; Z79.4 Long term (current) use of insulin; Z79.02 Long term (current) use of antithrombotics/antiplatelets
CPT/HCPCS: 36415; 76775; 80048; 80053; 80069; 81001; 81050; 82436; 82550; 82570; 82948; 83036; 83735; 84100; 84156; 84300; 85025; 85999; 87086; 87426; 93005; 96361; 96365; 96372; 96375; 99285; A9270; C9803; G0378; J0696; J1644; J1815; J7030; J7070; J7120; U0003; U0005

== ENCOUNTER 2021-07-03 15:48 | Inpatient (IN) | payer MEDICARE, SELFPAY ==
[2021-07-03] VITALS (7 sets, daily range): BP systolic 104–176; BP diastolic 54–69; PULSE 46–67; RESP 16; TEMP 36.3–36.4; O2SAT 96–99
--- NOTE | ~2021-07-03 | CT_ITS ---
EXAMINATION: CT brain wo con EXAM DATE: 07/03/2021 16:22 INDICATION: Head injury. TECHNIQUE: Spiral CT of the head was performed without contrast. Axial, coronal and sagittal images were reviewed. The dose-length product (DLP) for this examination was 681.00 mGy-cm. The exposure w as tailored according to patient size, and iterative reconstruction (ASIR) was used as additional dos e reduction technique. Comparison is made to prior examination from 05/08/2021. FINDINGS: Study is limited due to patient motion. There is no acute intraparenchymal hemorrhage. N o evidence of intraparenchymal brain mass lesion. No evidence of acute infarction. Please note that initial head CT has limited sensitivity for small or acute infarctions. There is mild to moderate pe riventricular and subcortical hypodensity, nonspecific but probably related to small vessel ischemic disease. There is mild to moderate prominence of the sulci and ventricles related to cerebral atrop hy. There is intracranial carotid arteriosclerosis. There are no extra-axial collections. There i s no mass effect or midline shift. The orbits are unremarkable. Soft tissue is unremarkable. The v isualized sinuses and mastoid air cells are well aerated. IMPRESSION: 1. Some motion but no acute findings suspected. 2. Chronic age related findings. Reviewed, dictated and finalized at location A.
[2021-07-03] MEDS: DEXTROSE 50% 25 GM/50 ML SYRINGE (16:04)
[2021-07-03 16:09] LABS: Glucose Point of Care 25 mg/dl (65-105)
[2021-07-03 16:28] LABS: Glucose Point of Care 119 mg/dl (65-105)
[2021-07-03 16:49] LABS: Basophils Absolute Auto 0.1 K/mm3 (0.0-0.1); Basophils Percent Auto 0.4 % (0.2-1.2); Eosinophils Absolute Auto 0.7 K/mm3 (0-0.3); Eosinophils Percent Auto 5.1 % (0-4.4); Hematocrit 30.6 % (42.0-52.0); Hemoglobin 9.5 g/dL (14.0-18.0); Immature Granulocyte Absolute 0.11 K/mm3 (0.00-0.031); Immature Granulocyte Percent A 0.8 % (0-0.5); Lymphocytes Absolute Auto 1.88 K/mm3 (0.9-3.2); Lymphocytes Percent Auto 13.7 % (18.3-44.2); Mean Corpuscular Hemoglobin 30.1 pg (26-34); Mean Corpuscular Volume 96.8 fl (80-100); Mean Platelet Volume 8.8 fl (7.4-10.4); Monocytes Absolute Auto 0.9 K/mm3 (0.1-0.6); Monocytes Percent Auto 6.2 % (2.6-8.5); Neutrophils Absolute Auto 10.2 K/mm3 (1.3-6.7); Neutrophils Percent Auto 73.8 % (45.5-73.1); Platelet Count Result 430 k/mm3 (150-375); Red Blood Count 3.16 M/mm3 (4.6-6.20); Red Cell Distribution Width 13.9 % (11.5-14.5); White Blood Count 13.8 K/mm3 (4.5-10.0)
--- NOTE | 2021-07-03 16:52 | PC.NURSE ---
pt able to hold own pudding and eat after getting dextrose. pt is able to hold a conversation. aware of surroundings. back to baseline
[2021-07-03 16:59] LABS: Anion Gap 10 mmol/L (8-16); Blood Urea Nitrogen 34 mg/dL (9-20); Calcium 8.9 mg/dL (8.4-10.2); Carbon Dioxide 23 mmol/L (22-30); Chloride 107 mmol/L (98-107); Estimated CRCL calculation 24 ml/min; Estimated Glomerular Filt Rate 29; Glucose 184 mg/dL (65-110); Potassium 4.3 mmol/L (3.4-5.0); Sodium 140 mmol/L (137-145)
[2021-07-03] MEDS: SODIUM CHLORIDE 0.9% IV 1,000 ML 999 ML IV CONT (17:15)
--- NOTE | 2021-07-03 17:27 | ED.GENADULT ---
HPI - General Adult General Chief complaint: Fall Stated complaint: fall from w/c Time Seen by Provider: 07/03/21 15:50 History of Present Illness HPI narrative: Patient is 76-year-old male who presents ER status post fall. Hit his head. Patient takes Plavix. Upon arrival patient is somnolent. Accu-Chek showed patient to be hypoglycemic. Keenly responsive to D50. Still altered. No deformity noted. Unsure whether patient may have lost consciousness. Patient also has cloudy colored urine in his Robledo catheter which appears to be new from previous hospitalization. Related Data Home Medications Medication Instructions Recorded Confirmed atorvastatin 20 mg PO HS 09/25/19 07/03/21 carvedilol 12.5 mg PO BID 09/25/19 07/03/21 clopidogrel 75 mg PO DAILY 09/25/19 07/03/21 losartan 100 mg PO DAILY 09/25/19 07/03/21 sertraline 50 mg PO HS 09/25/19 07/03/21 theophylline 400 mg PO QAM 09/25/19 07/03/21 aspirin 81 mg tablet,delayed 81 mg PO DAILY 10/07/20 07/03/21 release donepezil 10 mg tablet 10 mg PO HS tablet 10/07/20 07/03/21 multivitamin 1 tablet PO DAILY 10/07/20 07/03/21 melatonin 5 mg PO HS 05/07/21 07/03/21 Lantus Solostar U-100 Insulin 10 unit SUBCUT QPM 06/25/21 07/03/21 mirtazapine [Remeron] 30 mg PO HS 06/25/21 07/03/21 pantoprazole [Protonix] 20 mg PO QAM 06/25/21 07/03/21 Allergies Allergy/AdvReac Type Severity Reaction Status Date / Time aloe vera Allergy Intermediate Other Verified 06/25/21 22:10 Review of Systems Review of Systems: ROS unobtainable: Yes unobtainable due to mental status PMFSH Past Medical History Medical History Chronic kidney disease COVID Dementia of the Alzheimer's type Diabetes mellitus Dyslipidemia History of rectal cancer Hypertension Surgical History Surgical History History of colostomy Family History Family History Other Unknown family medical history Social History Social History Smoking status: Current some day smoker Additional smoking assessment comments: 1 a week Alcohol intake: unknown Alcohol use details: He states he drinks beer and 1/2 per month. Substance use: unknown Spiritual care concerns: No Exam Narrative: GENERAL: Ill-appearing, well-nourished, and in mild distress. HEAD: Normocephalic, atraumatic. EYES: PERRLA and EOMI. ENT: Dry mucous membranes. CHEST: Clear to auscultation. No respiratory distress. HEART: Bradycardic and irregular. Normal peripheral pulses. ABDOMEN: Soft, nontender, nondistended. EXTREMITIES: Normal range of motion. No edema. SKIN: Warm, dry, no rash. NEURO: Alert and oriented x1. PSYCH: Normal mood and affect. Course Course Emergency Course: Admit for acute on chronic renal failure, UTI, and hypoglycemia. Vital Signs Vital signs: Vital Signs Pulse Rate 46 L 07/03/21 15:51 Respiratory Rate 16 07/03/21 15:51 Blood Pressure 136/54 L 07/03/21 15:51 Pulse Oximetry 98 07/03/21 15:51 Temperature 97.2 F L 07/07/21 06:00 Pulse Rate 56 L 07/07/21 08:23 Respiratory Rate 18 07/07/21 08:00 Blood Pressure 172/68 H 07/07/21 06:00 Pulse Oximetry 100 07/07/21 08:00 Medical Decision Making Vital Signs Vital Signs: Vital Signs Pulse Rate 46 L 07/03/21 15:51 Respiratory Rate 16 07/03/21 15:51 Blood Pressure 136/54 L 07/03/21 15:51 Pulse Oximetry 98 07/03/21 15:51 Temperature 97.2 F L 07/07/21 06:00 Pulse Rate 56 L 07/07/21 08:23 Respiratory Rate 18 07/07/21 08:00 Blood Pressure 172/68 H 07/07/21 06:00 Pulse Oximetry 100 07/07/21 08:00 Lab Data Result diagrams: 07/06/21 05:28 07/06/21 05:28 Labs: Lab Results 07/03/21 07/03/21 07/03/21 Range/Units 16:00 16:22 16:43 WBC 13.8 H (4.5-10.0) K/mm3
[2021-07-03 17:46] LABS: Glucose Point of Care 177 mg/dl (65-105)
[2021-07-03 18:01] LABS: Add Urine Microscopic? YES; Appearance Urine Cloudy (Clear); Bacteria Urine Trace /hpf; Bilirubin Urine Negative (Negative); Blood Urine 1+ (Negative); Color Urine Yellow (Yellow); Glucose Urine UA 1+ mg/dL (Negative); Hyaline Casts Urine 15-19 /lpf; Ketones Urine Negative (Negative); Leukocyte Esterase Ur 1+ LEU/UL (Negative); Mucus Urine Few /lpf; Nitrate Urine Negative (Negative); Protein Urine 2+ mg/dL (Negative); RBC Urine 21-50 /hpf (0-2); Specific Grav Ur 1.017 (1.001-1.035); Squamous Epithelial Cell Urine Rare /hpf (Few); Urobilinogen Urine Negative mg/dL (<2.0); WBC Clumps Urine Present /HPF; WBC Urine 51-75 /hpf
[2021-07-03 18:17] LABS: Glucose Point of Care 175 mg/dl (65-105)
[2021-07-03] MEDS: SODIUM CHLORIDE 0.9% IV 1,000 ML 125 ML IV CONT (18:46)
--- NOTE | 2021-07-03 20:14 | PM.IMHP ---
H&P: HPI History of Present Illness Date/Time: Patient was placed observation status for expected length of stay less than 23 hours for management, will plan to re-evaluate tomorrow for improvement. 07/03/21 20:14 Chief Complaint: Altered mental status Narrative: Mr. Pacheco a 76-year-old gentleman who was brought to emergency room from [facility] via EMS after falling out of his wheelchair and hitting his forehead. Patient is alert oriented x1 and has underlying Alzheimer's and is unable to give any type of history. It is per emergency room records patient was able to open his eyes to verbal stimulation upon evaluation and EMS his blood glucose was 67. Emergency room provider states that upon initial evaluation emergency room patient's blood glucose level was low and patient received D50. After further evaluation patient was noted to have an acute kidney injury on chronic kidney disease and urinary tract infection. This patient was admitted approximately 1 week ago for abnormal laboratories. Patient had laboratories drawn at the [facility] and it was noted that patient had acute kidney injury on chronic kidney disease. Patient's BUN and creatinine at that time were 73/3.20. On discharge from this facility on 06/30/2021 patient's BUN was 22 and creatinine is 1.50. As already stated I am unable to obtain any history from the patient and there is no family at bedside. All history is coming from previous records. Patient has a known history of COVID-19 in March of 2021, Alzheimer's disease, diabetes mellitus, hypertension, dyslipidemia, chronic kidney disease, and colon cancer status post colostomy. Review of Systems Review of Systems: I am unable to obtain a full review of systems secondary to patient's clinical condition of dementia. [facility] Past Medical History Medical History (Updated 07/03/21 @ 20:23 by La Nena Matthews APRN) Chronic kidney disease COVID Dementia of the Alzheimer's type Diabetes mellitus Dyslipidemia History of rectal cancer Hypertension Surgical History Surgical History (Updated 06/25/21 @ 20:00 by La Nena Matthews APRN) History of colostomy Family History Family History Other Unknown family medical history Social History Social History Smoking status: Current some day smoker Additional smoking assessment comments: 1 a week Alcohol intake: unknown Alcohol use details: He states he drinks beer and 1/2 per month. Substance use: unknown Substance use type: does not use Spiritual care concerns: No Meds Home Medications and Allergies Home Medications Medication Instructions Recorded Confirmed Type atorvastatin 20 mg PO HS 09/25/19 07/03/21 History carvedilol 12.5 mg PO BID 09/25/19 07/03/21 History clopidogrel 75 mg PO DAILY 09/25/19 07/03/21 History losartan 100 mg PO DAILY 09/25/19 07/03/21 History metformin 1,000 mg PO BID 09/25/19 07/03/21 History sertraline 50 mg PO HS 09/25/19 07/03/21 History theophylline 400 mg PO QAM 09/25/19 07/03/21 History aspirin 81 mg tablet,delayed 81 mg PO DAILY 10/07/20 07/03/21 History release donepezil 10 mg tablet 10 mg PO HS tablet 10/07/20 07/03/21 History multivitamin 1 tablet PO DAILY 10/07/20 07/03/21 History melatonin 5 mg PO HS 05/07/21 07/03/21 History Lantus Solostar U-100 Insulin 10 unit SUBCUT QPM 06/25/21 07/03/21 History insulin aspart U-100 [Novolog 12 unit SUBCUT TID 06/25/21 07/03/21 History Flexpen U-100 Insulin] mirtazapine [Remeron] 30 mg PO HS 06/25/21 07/03/21 History pantoprazole [Protonix] 20 mg PO QAM 06/25/21 07/03/21 History Allergies Allergy/AdvReac Type Severity Reaction Status Date / Time aloe vera Allergy Intermediate Other Verified 06/25/21 22:10 Vital Signs Vital Signs - 24 hr 07/03/21 15:51 07/03/21 15:52 07/03/21 17:16 Temperature 36.3 C L Pulse R
[2021-07-03] MEDS: HEPARIN SODIUM 5,000 UNITS/ML VIAL 5000 UNITS SUB-Q (21:53)
[2021-07-03] MEDS: carvediloL 12.5 MG TABLET PO (21:54)
[2021-07-03] MEDS: ATORVASTATIN 20 MG TABLET PO (21:54)
[2021-07-03] MEDS: DONEPEZIL HCL 10 MG TABLET PO (21:54)
[2021-07-03] MEDS: MELATONIN 5 MG TABLET PO (21:55)
[2021-07-03] MEDS: SERTRALINE HCL 50 MG TABLET PO (21:55)
[2021-07-03] MEDS: MIRTAZAPINE 30 MG TABLET PO (21:55)
[2021-07-03] MEDS: INSULIN GLARGINE (*BKC) 100 UNITS/ML 10 UNITS SUB-Q (21:56)
[2021-07-03 22:17] LABS: Glucose Point of Care 165 mg/dl (65-105)
--- NOTE | 2021-07-03 22:24 | ADMGEN ---
This patient, Shane Pacheco, was admitted to 3 [facility] Room 301-01. Patient/family oriented to hospital policies and general routines including ID bracelet, bed and alarms, visiting hours, pain management, procedures, bathroom and other care routines, personal items, smoking policy, room service/diet, and visiting hours. Information on how to activate the Rapid Response Team has been discussed. Patient/Family are encouraged to report perceived risks to care and to ask questions if they do not understand what they are told or what they should do.
[2021-07-04] VITALS (7 sets, daily range): BP systolic 168–180; BP diastolic 56–82; PULSE 62–81; RESP 16–18; TEMP 36.3–37; O2SAT 95–100; BMI 23.3
[2021-07-04] MEDS: SODIUM CHLORIDE 0.9% IV 1,000 ML 125 ML IV CONT ×2 (04:37→15:52)
[2021-07-04 05:54] LABS: Basophils Absolute Auto 0.1 K/mm3 (0.0-0.1); Basophils Percent Auto 0.6 % (0.2-1.2); Eosinophils Absolute Auto 0.7 K/mm3 (0-0.3); Eosinophils Percent Auto 7.4 % (0-4.4); Hematocrit 30.3 % (42.0-52.0); Hemoglobin 9.5 g/dL (14.0-18.0); Immature Granulocyte Absolute 0.06 K/mm3 (0.00-0.031); Immature Granulocyte Percent A 0.7 % (0-0.5); Lymphocytes Absolute Auto 2.71 K/mm3 (0.9-3.2); Lymphocytes Percent Auto 30.4 % (18.3-44.2); Mean Corpuscular HGB Conc 31.4 g/dl (32-36); Mean Corpuscular Hemoglobin 30.4 pg (26-34); Mean Corpuscular Volume 96.8 fl (80-100); Mean Platelet Volume 9.2 fl (7.4-10.4); Monocytes Absolute Auto 0.7 K/mm3 (0.1-0.6); Monocytes Percent Auto 7.3 % (2.6-8.5); Neutrophils Absolute Auto 4.8 K/mm3 (1.3-6.7); Neutrophils Percent Auto 53.6 % (45.5-73.1); Platelet Count Result 401 k/mm3 (150-375); Red Blood Count 3.13 M/mm3 (4.6-6.20); White Blood Count 8.9 K/mm3 (4.5-10.0)
[2021-07-04 06:04] LABS: Alanine Aminotransferase 13 U/L (4-50); Albumin Level 3.7 g/dL (3.5-5.1); Alkaline Phosphatase 124 U/L (38-126); Anion Gap 9 mmol/L (8-16); Aspartate Amino Transferase 24 U/L (17-59); Bilirubin,Total 0.2 mg/dL (0.2-1.3); Blood Urea Nitrogen 27 mg/dL (9-20); Calcium 8.5 mg/dL (8.4-10.2); Carbon Dioxide 22 mmol/L (22-30); Chloride 111 mmol/L (98-107); Estimated CRCL calculation 29 ml/min; Estimated Glomerular Filt Rate 37; Glucose 121 mg/dL (65-110); Magnesium 1.3 mg/dL (1.6-2.3); Potassium 4.3 mmol/L (3.4-5.0); Sodium 142 mmol/L (137-145)
[2021-07-04 07:49] LABS: Glucose Point of Care 112 mg/dl (65-105)
[2021-07-04] MEDS: CLOPIDOGREL BISULFATE 75 MG TABLET PO (08:52)
[2021-07-04] MEDS: carvediloL 12.5 MG TABLET PO ×2 (08:52→20:11)
[2021-07-04] MEDS: THEOPHYLLINE ANHYDROUS 200 MG ER 24 HR CAPSULE 400 MG PO (08:52)
[2021-07-04] MEDS: PANTOPRAZOLE SOD SESQUIHYDRATE 20 MG TAB PO (08:52)
[2021-07-04] MEDS: HEPARIN SODIUM 5,000 UNITS/ML VIAL 5000 UNITS SUB-Q ×2 (08:53→20:12)
[2021-07-04] MEDS: MULTIVITAMINS THERAPEUTIC TAB (*BKC) 1 TABLET PO (08:53)
[2021-07-04] MEDS: ASPIRIN 81 MG ENTERIC TABLET PO (08:53)
[2021-07-04] MEDS: LOSARTAN POTASSIUM 100 MG TABLET PO (08:53)
[2021-07-04] MEDS: MAGNESIUM SULF 4 GM/WATER100ML 4 GM/100 ML BAG IVPB (08:57)
--- NOTE | 2021-07-04 11:00 | P.PNIM_ITS ---
Progress Note: A&P Assessment and Plan (1) Acute UTI: Code(s): N39.0 - Urinary tract infection, site not specified Status: Acute Assessment and Plan: * Urinalysis shows urinary tract infection * Continue Rocephin * Culture pending * Received some antibiotics last visit however his urine culture showed no growth * Tailor antibiotics to culture results (2) Jycje-xp-qtpgfft kidney injury: Code(s): N17.9 - Acute kidney failure, unspecified; N18.9 - Chronic kidney disease, unspecified Status: Acute Assessment and Plan: * Most likely multifactorial including urinary tract infection and mild dehydration * Nutritional support probably needs to be addressed * Will get GI involved for a consult for possible feeding tube * Antibiotic therapy has been started for urinary tract infection * Continue IV fluids for hydration * baseline creatinine is 1.5-1.6. * Trend labs (3) Hypoglycemia: Code(s): E16.2 - Hypoglycemia, unspecified Status: Acute Assessment and Plan: * Per emergency room patient was hypoglycemic upon arrival at 67 * Last admission he came in with a glucose of 40 * This is probably related to lack of intake. * Received 1 amp of D50, and blood glucose levels have improved * check blood glucose levels before meals and at bedtime * sliding scale insulin available. * Patient's metformin has been placed on hold due to the fact the patient's GFR contraindicate metformin at this time * He would probably benefit from just a sliding scale at home (4) Hypomagnesemia: Code(s): E83.42 - Hypomagnesemia Status: Acute Assessment and Plan: * Mg is 1.3 today * Replace with 4gms once * trend labs * Labs in the am (5) Failure to thrive: Status: Acute Assessment and Plan: * Second admission for the same issue of hypoglycemia, dehydration, possible UTI * GI consulted * Might need a G-Tube * Consult staffing branch manager Time Spent With Patient Time with patient: Greater than 35 minutes Subjective Date/time seen: 07/04/21 11:00 Interval history: 07/03/21 20:14 Narrative: Mr. Pacheco a 76-year-old gentleman who was brought to emergency room from [facility] via EMS after falling out of his wheelchair and hitting his forehead. Patient is alert oriented x1 and has underlying Alzheimer's and is unable to give any type of history. It is per emergency room records patient was able to open his eyes to verbal stimulation upon evaluation and EMS his blood glucose was 67. Emergency room provider states that upon initial evaluation emergency room patient's blood glucose level was low and patient received D50. After further evaluation patient was noted to have an acute kidney injury on chronic kidney disease and urinary tract infection. This patient was admitted approximately 1 week ago for abnormal laboratories. Patient had laboratories drawn at the [facility] and it was noted that patient had acute kidney injury on chronic kidney disease. Patient's BUN and creatinine at that time were 73/3.20. On discharge from this facility on 06/30/2021 patient's BUN was 22 and creatinine is 1.50. As already stated I am unable to obtain any history from the patient and there is no family at bedside. All history is coming from previous records. Patient has a known history of COVID-19 in March of 2021, Alzheimer's disease, diabetes mellitus, hypertension, dyslipidemia, chronic kidney disease, and colon can
--- NOTE | 2021-07-04 11:00 | PM.IMPN ---
Progress Note: A&P Assessment and Plan (1) Acute UTI: Code(s): N39.0 - Urinary tract infection, site not specified Status: Acute Assessment and Plan: Urinalysis shows urinary tract infection Continue Rocephin Culture pending Received some antibiotics last visit however his urine culture showed no growth Tailor antibiotics to culture results (2) Xnbkc-bo-sdqyjka kidney injury: Code(s): N17.9 - Acute kidney failure, unspecified; N18.9 - Chronic kidney disease, unspecified Status: Acute Assessment and Plan: Most likely multifactorial including urinary tract infection and mild dehydration Nutritional support probably needs to be addressed Will get GI involved for a consult for possible feeding tube Antibiotic therapy has been started for urinary tract infection Continue IV fluids for hydration baseline creatinine is 1.5-1.6. Trend labs (3) Hypoglycemia: Code(s): E16.2 - Hypoglycemia, unspecified Status: Acute Assessment and Plan: Per emergency room patient was hypoglycemic upon arrival at 67 Last admission he came in with a glucose of 40 This is probably related to lack of intake. Received 1 amp of D50, and blood glucose levels have improved check blood glucose levels before meals and at bedtime sliding scale insulin available. Patient's metformin has been placed on hold due to the fact the patient's GFR contraindicate metformin at this time He would probably benefit from just a sliding scale at home (4) Hypomagnesemia: Code(s): E83.42 - Hypomagnesemia Status: Acute Assessment and Plan: Mg is 1.3 today Replace with 4gms once trend labs Labs in the am (5) Failure to thrive: Status: Acute Assessment and Plan: Second admission for the same issue of hypoglycemia, dehydration, possible UTI GI consulted Might need a G-Tube Consult employee services manager Time Spent With Patient Time with patient: Greater than 35 minutes Subjective Date/time seen: 07/04/21 11:00 Interval history: 07/03/21 20:14 Narrative: Mr. Pacheco a 76-year-old gentleman who was brought to emergency room from [facility] via EMS after falling out of his wheelchair and hitting his forehead. Patient is alert oriented x1 and has underlying Alzheimer's and is unable to give any type of history. It is per emergency room records patient was able to open his eyes to verbal stimulation upon evaluation and EMS his blood glucose was 67. Emergency room provider states that upon initial evaluation emergency room patient's blood glucose level was low and patient received D50. After further evaluation patient was noted to have an acute kidney injury on chronic kidney disease and urinary tract infection. This patient was admitted approximately 1 week ago for abnormal laboratories. Patient had laboratories drawn at the [facility] and it was noted that patient had acute kidney injury on chronic kidney disease. Patient's BUN and creatinine at that time were 73/3.20. On discharge from this facility on 06/30/2021 patient's BUN was 22 and creatinine is 1.50. As already stated I am unable to obtain any history from the patient and there is no family at bedside. All history is coming from previous records. Patient has a known history of COVID-19 in March of 2021, Alzheimer's disease, diabetes mellitus, hypertension, dyslipidemia, chronic kidney disease, and colon cancer status post colostomy. 07/04/21 1100 Patient was resting comfortably be upon arrival to the room. Patient had no complaints however a complete review of systems unable to be obtained due to patient's mental status. It is curious that the patient would have a blood glucose of 67 upon arrival and on his last visit he did have a blood glucose of 40 upon his last arrival. I would assume that his nutrition is a big problem. Review of Syst
[2021-07-04 11:36] LABS: Glucose Point of Care 155 mg/dl (65-105)
--- NOTE | 2021-07-04 15:36 | WPDGICN ---
Assessment and Plan Assessment and plan (1) Failure to thrive: Status: Acute Assessment and Plan: I had a long discussion with his about the pros and cons of tube feeding. I explained that the feeding tube does not need to be permanent. I explained how it is often used after an acute illness were nutrition is an issue . until the patient can recover and eat again. Obviously this is a different situation . If he has a feeding tube there is not much hope that it would be removed unless they elected to do so, but would allow her to provide nutrition that is a primary concern at this point. She will think about it. I can see that she was emotional towards the end of our discussion and so I had told her the not walters her decision. Wednesday is the earliest we would be placing the tube it any rate. (2) Diabetes mellitus: Code(s): E11.9 - Type 2 diabetes mellitus without complications Status: Chronic Assessment and Plan: He was hypoglycemic on admission, now blood sugar is 120s (3) Dementia of the Alzheimer's type: Qualifiers: Alzheimer's disease onset: unspecified onset Dementia behavioral disturbance: without behavioral disturbance Qualified Code(s): G30.9 - Alzheimer's disease, unspecified; F02.80 - Dementia in other diseases classified elsewhere without behavioral disturbance Code(s): G30.9 - Alzheimer's disease, unspecified; F02.80 - Dementia in other diseases classified elsewhere without behavioral disturbance Status: Acute Assessment and Plan: he often is disoriented and is engaged from his surroundings. The believes that that is why he does not eat-- because he does not recognize the fact that food that he is looking that will help with his hunger. (4) Jkksj-mj-yowpgam kidney injury: Code(s): N17.9 - Acute kidney failure, unspecified; N18.9 - Chronic kidney disease, unspecified Status: Acute Assessment and Plan: Apparently on dialysis 3 times a week (5) History of colostomy: Status: Acute Assessment and Plan: he has a history of colon cancer that was resected and subsequently developed a stricture requiring a permanent colostomy GI Consult Note Consult date/time: 07/04/21 15:36 HPI: Shane Pacheco is a 76 year old male was admitted here from an extended care facility where he had been staying the last few weeks. He had fallen out of his wheelchair. He has Alzheimer's disease. He cannot give any history. Fortunately, his is at his bedside. She explained that over the last 2-3 years he has lost interest in eating. He seems to not be able to make the connection between hunger and needing to eat. She states that for a while he would eat at [employer] fish sandwich every day but then that stopped. For while he would eat fried Shrimp but that also was short-lived. I have been asked to see him regarding possible placement of a feeding tube. His is torn about this. She recalls that when he was much younger he would talk about not wanting tubes to keep him alive. The other hand she is so concerned about his nutrition. She is certain he has lost weight. He also has chronic kidney disease and diabetes. He is on chronic dialysis. Review of Systems Review of Systems: All systems reviewed & are unremarkable except as noted in HPI and below PMFSH Past Medical History Medical History Chronic kidney disease COVID Dementia of the Alzheimer's type Diabetes mellitus Dyslipidemia History of rectal cancer Hypertension Surgical History Surgical History History of colostomy Family History Family History Other Unknown family medical history Social History Social History Smoking status: Cur
[2021-07-04] MEDS: hydrALAZINE HCL 20 MG/ML VIAL 10 MG IV PUSH (15:52)
[2021-07-04 16:36] LABS: Glucose Point of Care 141 mg/dl (65-105)
[2021-07-04] MEDS: MEGESTROL ACETATE (*CHEMO) ORAL SUSP 40 MG/ML SYR 60 MG PO ×2 (16:56→20:12)
[2021-07-04] MEDS: INSULIN GLARGINE (*BKC) 100 UNITS/ML 10 UNITS SUB-Q (17:00)
[2021-07-04] MEDS: ATORVASTATIN 20 MG TABLET PO (20:10)
[2021-07-04] MEDS: DONEPEZIL HCL 10 MG TABLET PO (20:10)
[2021-07-04] MEDS: SERTRALINE HCL 50 MG TABLET PO (20:11)
[2021-07-04] MEDS: MELATONIN 5 MG TABLET PO (20:11)
[2021-07-04] MEDS: MIRTAZAPINE 30 MG TABLET PO (20:13)
[2021-07-04] MEDS: SODIUM CHLORIDE 0.9% IV 1,000 ML 100 ML IV CONT (20:14)
[2021-07-04 21:26] LABS: Glucose Point of Care 147 mg/dl (65-105)
[2021-07-05] MEDS: MEGESTROL ACETATE (*CHEMO) ORAL SUSP 40 MG/ML SYR 60 MG PO ×4 (05:53→20:36)
[2021-07-05 06:00] VITALS: BP 143/48; PULSE 61; RESP 20; TEMP 37.2; O2SAT 97
[2021-07-05 07:50] LABS: Glucose Point of Care 99 mg/dl (65-105)
--- NOTE | 2021-07-05 08:20 | PM.IMPN ---
Progress Note: A&P Assessment and Plan (1) Fdqxj-oq-srzkvdp kidney injury: Code(s): N17.9 - Acute kidney failure, unspecified; N18.9 - Chronic kidney disease, unspecified Status: Acute Assessment and Plan: Most likely multifactorial including urinary tract infection and mild dehydration BUN/Cr today is 20/1.70 Nutritional support probably needs to be addressed Will get GI involved for a consult for possible feeding tube Antibiotic therapy has been started for urinary tract infection DC IV fluids for now baseline creatinine is 1.5-1.6. Trend labs (2) Hypoglycemia: Code(s): E16.2 - Hypoglycemia, unspecified Status: Acute Assessment and Plan: Glucose is 104 Per emergency room patient was hypoglycemic upon arrival at 67 Last admission he came in with a glucose of 40 This is probably related to lack of intake. Received 1 amp of D50, and blood glucose levels have improved check blood glucose levels before meals and at bedtime sliding scale insulin available. Patient's metformin has been placed on hold due to the fact the patient's GFR contraindicate metformin at this time He would probably benefit from just a sliding scale at home (3) Hypomagnesemia: Code(s): E83.42 - Hypomagnesemia Status: Acute Assessment and Plan: Mg replaced yesterday trend labs Labs in the am (4) Failure to thrive: Status: Acute Assessment and Plan: Second admission for the same issue of hypoglycemia, dehydration, possible UTI GI consulted Might need a G-Tube Seems GI has talked to his about G-tube Hospice has also been presented Consult demand generator manager (5) Abnormal urinalysis: Code(s): R82.90 - Unspecified abnormal findings in urine Status: Acute Assessment and Plan: Urinalysis shows urinary tract infection Stop antibiotics for now Culture no growth Received some antibiotics last visit however his urine culture showed no growth Tailor antibiotics to culture results (6) Anemia: Code(s): D64.9 - Anemia, unspecified Status: Acute Assessment and Plan: H/H 7.6/24.2 today Was 9.5/30.3 yesterday Anemia labs ordered Replace as indicated Trend labs Labs in the am Time Spent With Patient Time with patient: Greater than 35 minutes Subjective Date/time seen: 07/05/21 0820 Interval history: 07/03/21 20:14 Narrative: Mr. Pacheco a 76-year-old gentleman who was brought to emergency room from [facility] via EMS after falling out of his wheelchair and hitting his forehead. Patient is alert oriented x1 and has underlying Alzheimer's and is unable to give any type of history. It is per emergency room records patient was able to open his eyes to verbal stimulation upon evaluation and EMS his blood glucose was 67. Emergency room provider states that upon initial evaluation emergency room patient's blood glucose level was low and patient received D50. After further evaluation patient was noted to have an acute kidney injury on chronic kidney disease and urinary tract infection. This patient was admitted approximately 1 week ago for abnormal laboratories. Patient had laboratories drawn at the [facility] and it was noted that patient had acute kidney injury on chronic kidney disease. Patient's BUN and creatinine at that time were 73/3.20. On discharge from this facility on 06/30/2021 patient's BUN was 22 and creatinine is 1.50. As already stated I am unable to obtain any history from the patient and there is no family at bedside. All history is coming from previous records. Patient has a known history of COVID-19 in March of 2021, Alzheimer's disease, diabetes mellitus, hypertension, dyslipidemia, chronic kidney disease, and colon cancer status post colostomy. 07/04/21 1100 Patient was resting comfortably be upon arrival to the
--- NOTE | 2021-07-05 08:20 | P.PNIM_ITS ---
Progress Note: A&P Assessment and Plan (1) Ebbsm-du-srjrboo kidney injury: Code(s): N17.9 - Acute kidney failure, unspecified; N18.9 - Chronic kidney disease, unspecified Status: Acute Assessment and Plan: * Most likely multifactorial including urinary tract infection and mild dehydration * BUN/Cr today is 20/1.70 * Nutritional support probably needs to be addressed * Will get GI involved for a consult for possible feeding tube * Antibiotic therapy has been started for urinary tract infection * DC IV fluids for now * baseline creatinine is 1.5-1.6. * Trend labs (2) Hypoglycemia: Code(s): E16.2 - Hypoglycemia, unspecified Status: Acute Assessment and Plan: * Glucose is 104 * Per emergency room patient was hypoglycemic upon arrival at 67 * Last admission he came in with a glucose of 40 * This is probably related to lack of intake. * Received 1 amp of D50, and blood glucose levels have improved * check blood glucose levels before meals and at bedtime * sliding scale insulin available. * Patient's metformin has been placed on hold due to the fact the patient's GFR contraindicate metformin at this time * He would probably benefit from just a sliding scale at home (3) Hypomagnesemia: Code(s): E83.42 - Hypomagnesemia Status: Acute Assessment and Plan: * Mg replaced yesterday * trend labs * Labs in the am (4) Failure to thrive: Status: Acute Assessment and Plan: * Second admission for the same issue of hypoglycemia, dehydration, possible UTI * GI consulted * Might need a G-Tube * Seems GI has talked to his about G-tube * Hospice has also been presented * Consult director software development (5) Abnormal urinalysis: Code(s): R82.90 - Unspecified abnormal findings in urine Status: Acute Assessment and Plan: * Urinalysis shows urinary tract infection * Stop antibiotics for now * Culture no growth * Received some antibiotics last visit however his urine culture showed no growth * Tailor antibiotics to culture results (6) Anemia: Code(s): D64.9 - Anemia, unspecified Status: Acute Assessment and Plan: * H/H 7.6/24.2 today * Was 9.5/30.3 yesterday * Anemia labs ordered * Replace as indicated * Trend labs * Labs in the am Time Spent With Patient Time with patient: Greater than 35 minutes Subjective Date/time seen: 07/05/21 0820 Interval history: 07/03/21 20:14 Narrative: Mr. Pacheco a 76-year-old gentleman who was brought to emergency room from [facility] via EMS after falling out of his wheelchair and hitting his forehead. Patient is alert oriented x1 and has underlying Alzheimer's and is unable to give any type of history. It is per emergency room records patient was able to open his eyes to verbal stimulation upon evaluation and EMS his blood glucose was 67. Emergency room provider states that upon initial evaluation emergency room patient's blood glucose level was low and patient received D50. After further evaluation patient was noted to have an acute kidney injury on chronic kidney disease and urinary tract infection. This patient was admitted approximately 1 week ago for abnormal laboratories. Patient had laboratories drawn at the [facility] and it was noted that patient had acute kidney injury on chronic kidney disease. Patient's BUN and creatinine at that time were 73/3.
[2021-07-05 08:26] LABS: Basophils Absolute Auto 0.1 K/mm3 (0.0-0.1); Basophils Percent Auto 0.6 % (0.2-1.2); Eosinophils Absolute Auto 0.5 K/mm3 (0-0.3); Eosinophils Percent Auto 5.4 % (0-4.4); Hematocrit 24.2 % (42.0-52.0); Hemoglobin 7.6 g/dL (14.0-18.0); Immature Granulocyte Absolute 0.03 K/mm3 (0.00-0.031); Immature Granulocyte Percent A 0.3 % (0-0.5); Lymphocytes Absolute Auto 1.77 K/mm3 (0.9-3.2); Lymphocytes Percent Auto 20.6 % (18.3-44.2); Mean Corpuscular HGB Conc 31.4 g/dl (32-36); Mean Corpuscular Volume 95.7 fl (80-100); Mean Platelet Volume 8.8 fl (7.4-10.4); Monocytes Absolute Auto 0.8 K/mm3 (0.1-0.6); Neutrophils Absolute Auto 5.5 K/mm3 (1.3-6.7); Neutrophils Percent Auto 64.1 % (45.5-73.1); Platelet Count Result 348 k/mm3 (150-375); Red Blood Count 2.53 M/mm3 (4.6-6.20); Red Cell Distribution Width 14.2 % (11.5-14.5); White Blood Count 8.6 K/mm3 (4.5-10.0)
[2021-07-05 08:36] LABS: Alanine Aminotransferase 11 U/L (4-50); Alkaline Phosphatase 111 U/L (38-126); Anion Gap 6 mmol/L (8-16); Aspartate Amino Transferase 19 U/L (17-59); Bilirubin,Total 0.2 mg/dL (0.2-1.3); Blood Urea Nitrogen 20 mg/dL (9-20); Calcium 8.3 mg/dL (8.4-10.2); Carbon Dioxide 22 mmol/L (22-30); Chloride 114 mmol/L (98-107); Estimated CRCL calculation 30 ml/min; Estimated Glomerular Filt Rate 39; Glucose 104 mg/dL (65-110); Sodium 142 mmol/L (137-145)
[2021-07-05] MEDS: MULTIVITAMINS THERAPEUTIC TAB (*BKC) 1 TABLET PO (08:36)
[2021-07-05] MEDS: THEOPHYLLINE ANHYDROUS 200 MG ER 24 HR CAPSULE 400 MG PO (08:36)
[2021-07-05] MEDS: LOSARTAN POTASSIUM 100 MG TABLET PO (08:36)
[2021-07-05 08:37] VITALS: PULSE 66
[2021-07-05] MEDS: CLOPIDOGREL BISULFATE 75 MG TABLET PO (08:37)
[2021-07-05] MEDS: carvediloL 12.5 MG TABLET PO ×2 (08:37→20:37)
[2021-07-05] MEDS: PANTOPRAZOLE SOD SESQUIHYDRATE 20 MG TAB PO (08:39)
[2021-07-05] MEDS: HEPARIN SODIUM 5,000 UNITS/ML VIAL 5000 UNITS SUB-Q ×2 (08:39→20:37)
[2021-07-05] MEDS: ASPIRIN 81 MG ENTERIC TABLET PO (08:39)
[2021-07-05 11:40] LABS: Iron 33 ug/dL (49-181)
[2021-07-05 11:58] LABS: Percent Iron Saturation 13 % (20-50)
[2021-07-05 12:02] LABS: Glucose Point of Care 303 mg/dl (65-105)
[2021-07-05] MEDS: INSULIN ASPART (*BKC) 100 UNITS/ML SUB-Q ×2 (12:34→17:12)
[2021-07-05 12:45] LABS: Folic Acid 15.3 ng/mL (2.76->20)
[2021-07-05 13:59] VITALS: BP 109/58; PULSE 71; RESP 16; TEMP 37.1; O2SAT 100
[2021-07-05 16:51] LABS: Glucose Point of Care 217 mg/dl (65-105)
[2021-07-05] MEDS: INSULIN GLARGINE (*BKC) 100 UNITS/ML 10 UNITS SUB-Q (17:10)
[2021-07-05 20:02] VITALS: O2SAT 94
[2021-07-05] MEDS: SERTRALINE HCL 50 MG TABLET PO (20:36)
[2021-07-05] MEDS: MELATONIN 5 MG TABLET PO (20:37)
[2021-07-05] MEDS: MIRTAZAPINE 30 MG TABLET PO (20:37)
[2021-07-05] MEDS: ATORVASTATIN 20 MG TABLET PO (20:37)
[2021-07-05] MEDS: DONEPEZIL HCL 10 MG TABLET PO (20:37)
[2021-07-05 21:48] LABS: Glucose Point of Care 186 mg/dl (65-105)
[2021-07-05 22:00] VITALS: BP 131/48; PULSE 79; RESP 16; TEMP 37.3; O2SAT 97
[2021-07-06 06:00] VITALS: BP 167/55; PULSE 54; RESP 18; TEMP 36.9; O2SAT 100
[2021-07-06] MEDS: MEGESTROL ACETATE (*CHEMO) ORAL SUSP 40 MG/ML SYR 60 MG PO ×4 (06:02→20:13)
[2021-07-06 06:04] LABS: Basophils Percent Auto 0.6 % (0.2-1.2); Eosinophils Absolute Auto 0.5 K/mm3 (0-0.3); Eosinophils Percent Auto 6.9 % (0-4.4); Hematocrit 23.2 % (42.0-52.0); Hemoglobin 7.4 g/dL (14.0-18.0); Immature Granulocyte Absolute 0.02 K/mm3 (0.00-0.031); Immature Granulocyte Percent A 0.3 % (0-0.5); Lymphocytes Absolute Auto 2.15 K/mm3 (0.9-3.2); Lymphocytes Percent Auto 31.4 % (18.3-44.2); Mean Corpuscular HGB Conc 31.9 g/dl (32-36); Mean Corpuscular Hemoglobin 30.6 pg (26-34); Mean Corpuscular Volume 95.9 fl (80-100); Mean Platelet Volume 9.1 fl (7.4-10.4); Monocytes Absolute Auto 0.6 K/mm3 (0.1-0.6); Monocytes Percent Auto 8.3 % (2.6-8.5); Neutrophils Absolute Auto 3.6 K/mm3 (1.3-6.7); Neutrophils Percent Auto 52.5 % (45.5-73.1); Platelet Count Result 320 k/mm3 (150-375); Red Blood Count 2.42 M/mm3 (4.6-6.20); White Blood Count 6.9 K/mm3 (4.5-10.0)
[2021-07-06 06:13] LABS: Alanine Aminotransferase 10 U/L (4-50); Albumin Level 3.1 g/dL (3.5-5.1); Alkaline Phosphatase 102 U/L (38-126); Anion Gap 8 mmol/L (8-16); Aspartate Amino Transferase 18 U/L (17-59); Bilirubin,Total 0.2 mg/dL (0.2-1.3); Blood Urea Nitrogen 21 mg/dL (9-20); Calcium 8.2 mg/dL (8.4-10.2); Carbon Dioxide 21 mmol/L (22-30); Chloride 111 mmol/L (98-107); Estimated CRCL calculation 30 ml/min; Estimated Glomerular Filt Rate 39; Glucose 166 mg/dL (65-110); Magnesium 1.8 mg/dL (1.6-2.3); Potassium 3.9 mmol/L (3.4-5.0); Sodium 140 mmol/L (137-145)
[2021-07-06 07:42] LABS: Glucose Point of Care 148 mg/dl (65-105)
[2021-07-06] MEDS: HEPARIN SODIUM 5,000 UNITS/ML VIAL 5000 UNITS SUB-Q ×2 (08:44→20:14)
[2021-07-06] MEDS: THEOPHYLLINE ANHYDROUS 200 MG ER 24 HR CAPSULE 400 MG PO (08:45)
[2021-07-06 08:46] VITALS: PULSE 52
[2021-07-06] MEDS: DOCUSATE SODIUM 100 MG CAPSULE PO ×2 (08:46→20:14)
[2021-07-06] MEDS: MULTIVITAMINS THERAPEUTIC TAB (*BKC) 1 TABLET PO (08:46)
[2021-07-06] MEDS: CLOPIDOGREL BISULFATE 75 MG TABLET PO (08:46)
[2021-07-06] MEDS: ASPIRIN 81 MG ENTERIC TABLET PO (08:46)
[2021-07-06] MEDS: carvediloL 12.5 MG TABLET PO ×2 (08:46→20:14)
[2021-07-06] MEDS: LOSARTAN POTASSIUM 100 MG TABLET PO (08:46)
[2021-07-06] MEDS: FERROUS SULFATE 324 MG TABLET PO ×2 (08:46→17:28)
[2021-07-06] MEDS: PANTOPRAZOLE SOD SESQUIHYDRATE 20 MG TAB PO (08:47)
--- NOTE | 2021-07-06 09:00 | P.PNIM_ITS ---
Progress Note: A&P Assessment and Plan (1) Uqrba-wa-vpmconk kidney injury: Code(s): N17.9 - Acute kidney failure, unspecified; N18.9 - Chronic kidney disease, unspecified Status: Acute Assessment and Plan: * Most likely multifactorial including urinary tract infection and mild dehydration * BUN/Cr today is 21/1.70 * Nutritional support probably needs to be addressed * Will get GI involved for a consult for possible feeding tube * Antibiotic therapy has been started for urinary tract infection * DC IV fluids for now * baseline creatinine is 1.5-1.6. * Trend labs * Meeting with hospice today * Probably discharge today or tomorrow on hospice (2) Hypoglycemia: Code(s): E16.2 - Hypoglycemia, unspecified Status: Acute Assessment and Plan: * Glucose is 166 * Per emergency room patient was hypoglycemic upon arrival at 67 * Last admission he came in with a glucose of 40 * This is probably related to lack of intake. * Received 1 amp of D50, and blood glucose levels have improved * check blood glucose levels before meals and at bedtime * sliding scale insulin available. * Patient's metformin has been placed on hold due to the fact the patient's GFR contraindicate metformin at this time * He would probably benefit from just a sliding scale at home (3) Hypomagnesemia: Code(s): E83.42 - Hypomagnesemia Status: Acute Assessment and Plan: * Mg 1.8 * trend labs * Labs in the am (4) Failure to thrive: Status: Acute Assessment and Plan: * Second admission for the same issue of hypoglycemia, dehydration, possible UTI * GI consulted * Might need a G-Tube * Seems GI has talked to his about G-tube * Hospice has also been presented * Consult hat copyist (5) Abnormal urinalysis: Code(s): R82.90 - Unspecified abnormal findings in urine Status: Acute Assessment and Plan: * Urinalysis shows urinary tract infection * Stop antibiotics for now * Culture no growth * Received some antibiotics last visit however his urine culture showed no growth * Tailor antibiotics to culture results (6) Anemia: Code(s): D64.9 - Anemia, unspecified Status: Acute Assessment and Plan: * H/H 7.4/23.2 today * Anemia labs iron 33, TIBC 249, % sat 13, Ferritin 82.80, B12 971, Folate 15.3 * Start iron and colace * Trend labs * Labs in the am Time Spent With Patient Time with patient: Greater than 35 minutes Subjective Date/time seen: 07/06/21 0900 Interval history: 07/03/21 20:14 Narrative: Mr. Pacheco a 76-year-old gentleman who was brought to emergency room from [facility] via EMS after falling out of his wheelchair and hitting his forehead. Patient is alert oriented x1 and has underlying Alzheimer's and is unable to give any type of history. It is per emergency room records patient was able to open his eyes to verbal stimulation upon evaluation and EMS his blood glucose was 67. Emergency room provider states that upon initial evaluation emergency room patient's blood glucose level was low and patient received D50. After further evaluation patient was noted to have an acute kidney injury on chronic kidney disease and urinary tract infection. This patient was admitted approximately 1 week ago for abnormal laboratories. Patient had laboratories drawn at the [facility] and it was noted that patient had a
--- NOTE | 2021-07-06 09:00 | PM.IMPN ---
Progress Note: A&P Assessment and Plan (1) Wcdef-bb-uprdxcl kidney injury: Code(s): N17.9 - Acute kidney failure, unspecified; N18.9 - Chronic kidney disease, unspecified Status: Acute Assessment and Plan: Most likely multifactorial including urinary tract infection and mild dehydration BUN/Cr today is 21/1.70 Nutritional support probably needs to be addressed Will get GI involved for a consult for possible feeding tube Antibiotic therapy has been started for urinary tract infection DC IV fluids for now baseline creatinine is 1.5-1.6. Trend labs Meeting with hospice today Probably discharge today or tomorrow on hospice (2) Hypoglycemia: Code(s): E16.2 - Hypoglycemia, unspecified Status: Acute Assessment and Plan: Glucose is 166 Per emergency room patient was hypoglycemic upon arrival at 67 Last admission he came in with a glucose of 40 This is probably related to lack of intake. Received 1 amp of D50, and blood glucose levels have improved check blood glucose levels before meals and at bedtime sliding scale insulin available. Patient's metformin has been placed on hold due to the fact the patient's GFR contraindicate metformin at this time He would probably benefit from just a sliding scale at home (3) Hypomagnesemia: Code(s): E83.42 - Hypomagnesemia Status: Acute Assessment and Plan: Mg 1.8 trend labs Labs in the am (4) Failure to thrive: Status: Acute Assessment and Plan: Second admission for the same issue of hypoglycemia, dehydration, possible UTI GI consulted Might need a G-Tube Seems GI has talked to his about G-tube Hospice has also been presented Consult community resource consultant (5) Abnormal urinalysis: Code(s): R82.90 - Unspecified abnormal findings in urine Status: Acute Assessment and Plan: Urinalysis shows urinary tract infection Stop antibiotics for now Culture no growth Received some antibiotics last visit however his urine culture showed no growth Tailor antibiotics to culture results (6) Anemia: Code(s): D64.9 - Anemia, unspecified Status: Acute Assessment and Plan: H/H 7.4/23.2 today Anemia labs iron 33, TIBC 249, % sat 13, Ferritin 82.80, B12 971, Folate 15.3 Start iron and colace Trend labs Labs in the am Time Spent With Patient Time with patient: Greater than 35 minutes Subjective Date/time seen: 07/06/21 0900 Interval history: 07/03/21 20:14 Narrative: Mr. Pacheco a 76-year-old gentleman who was brought to emergency room from [facility] facility via EMS after falling out of his wheelchair and hitting his forehead. Patient is alert oriented x1 and has underlying Alzheimer's and is unable to give any type of history. It is per emergency room records patient was able to open his eyes to verbal stimulation upon evaluation and EMS his blood glucose was 67. Emergency room provider states that upon initial evaluation emergency room patient's blood glucose level was low and patient received D50. After further evaluation patient was noted to have an acute kidney injury on chronic kidney disease and urinary tract infection. This patient was admitted approximately 1 week ago for abnormal laboratories. Patient had laboratories drawn at the [facility] and it was noted that patient had acute kidney injury on chronic kidney disease. Patient's BUN and creatinine at that time were 73/3.20. On discharge from this facility on 06/30/2021 patient's BUN was 22 and creatinine is 1.50. As already stated I am unable to obtain any history from the patient and there is no family at bedside. All history is coming from previous records. Patient has a known history of COVID-19 in March of 2021, Alzheimer's disease, diabetes mellitus, hypertension, dyslipidemia, chronic kidney disease, and colon cancer st
[2021-07-06 11:36] LABS: Glucose Point of Care 142 mg/dl (65-105)
[2021-07-06 14:00] VITALS: BP 137/54; PULSE 56; RESP 16; TEMP 36.6; O2SAT 100
--- NOTE | 2021-07-06 15:56 | PCCCNOTE ---
Hospice order successfully faxed to [facility] at [phone].
[2021-07-06 16:45] LABS: Glucose Point of Care 410 mg/dl (65-105)
[2021-07-06] MEDS: INSULIN GLARGINE (*BKC) 100 UNITS/ML 10 UNITS SUB-Q (17:28)
[2021-07-06] MEDS: SODIUM CHLORIDE 0.9% IV 250 ML IV CONT (17:28)
[2021-07-06] MEDS: INSULIN ASPART (*BKC) 100 UNITS/ML 12 UNITS SUB-Q (17:28)
[2021-07-06 18:12] LABS: Glucose Point of Care 364 mg/dl (65-105)
[2021-07-06 20:14] VITALS: PULSE 81
[2021-07-06] MEDS: SERTRALINE HCL 50 MG TABLET PO (20:14)
[2021-07-06] MEDS: DONEPEZIL HCL 10 MG TABLET PO (20:14)
[2021-07-06] MEDS: MIRTAZAPINE 30 MG TABLET PO (20:14)
[2021-07-06] MEDS: MELATONIN 5 MG TABLET PO (20:14)
[2021-07-06] MEDS: ATORVASTATIN 20 MG TABLET PO (20:14)
[2021-07-06 21:28] LABS: Glucose Point of Care 241 mg/dl (65-105)
[2021-07-06 22:00] VITALS: BP 140/59; PULSE 66; RESP 16; TEMP 36.3; O2SAT 98
[2021-07-07] MEDS: MEGESTROL ACETATE (*CHEMO) ORAL SUSP 40 MG/ML SYR 60 MG PO ×2 (05:33→11:30)
[2021-07-07 06:00] VITALS: BP 172/68; PULSE 55; RESP 18; TEMP 36.2; O2SAT 100
[2021-07-07 07:40] LABS: Glucose Point of Care 174 mg/dl (65-105)
[2021-07-07 08:00] VITALS: PULSE 56; RESP 18; O2SAT 100
[2021-07-07] MEDS: CLOPIDOGREL BISULFATE 75 MG TABLET PO (08:21)
[2021-07-07] MEDS: PANTOPRAZOLE SOD SESQUIHYDRATE 20 MG TAB PO (08:21)
[2021-07-07] MEDS: LOSARTAN POTASSIUM 100 MG TABLET PO (08:21)
[2021-07-07] MEDS: MULTIVITAMINS THERAPEUTIC TAB (*BKC) 1 TABLET PO (08:21)
[2021-07-07] MEDS: HEPARIN SODIUM 5,000 UNITS/ML VIAL 5000 UNITS SUB-Q (08:21)
[2021-07-07] MEDS: THEOPHYLLINE ANHYDROUS 200 MG ER 24 HR CAPSULE 400 MG PO (08:21)
[2021-07-07 08:23] VITALS: PULSE 56
[2021-07-07] MEDS: carvediloL 12.5 MG TABLET PO (08:23)
[2021-07-07] MEDS: FERROUS SULFATE 324 MG TABLET PO (08:23)
--- NOTE | 2021-07-07 09:45 | PM.DS ---
DS: Admitting Diagnosis Discharge Date 07/07/21 0945 Admitting Diagnosis Acute on chronic renal failure/Hypoglycemia DS: Discharge Diagnosis Discharge Diagnosis (1) Xlbzu-oh-ucaboip kidney injury: Code(s): N17.9 - Acute kidney failure, unspecified; N18.9 - Chronic kidney disease, unspecified Status: Acute Assessment and Plan: Most likely multifactorial including urinary tract infection and mild dehydration BUN/Cr is 21/1.70 Nutritional support probably needs to be addressed Will get GI involved for a consult for possible feeding tube Antibiotic therapy has been started for urinary tract infection DC IV fluids for now baseline creatinine is 1.5-1.6. Trend labs Meeting with hospice today Probably discharge today or tomorrow on hospice (2) Hypoglycemia: Code(s): E16.2 - Hypoglycemia, unspecified Status: Acute Assessment and Plan: Glucose is 174 Per emergency room patient was hypoglycemic upon arrival at 67 Last admission he came in with a glucose of 40 This is probably related to lack of intake. Received 1 amp of D50, and blood glucose levels have improved check blood glucose levels before meals and at bedtime sliding scale insulin available. Patient's metformin has been placed on hold due to the fact the patient's GFR contraindicate metformin at this time He would probably benefit from just a sliding scale at home (3) Hypomagnesemia: Code(s): E83.42 - Hypomagnesemia Status: Acute Assessment and Plan: Mg 1.8 trend labs Labs in the am (4) Failure to thrive: Status: Acute Assessment and Plan: Second admission for the same issue of hypoglycemia, dehydration, possible UTI GI consulted Might need a G-Tube Seems GI has talked to his about G-tube Hospice has also been presented Consult manager commodities (5) Abnormal urinalysis: Code(s): R82.90 - Unspecified abnormal findings in urine Status: Acute Assessment and Plan: Urinalysis shows urinary tract infection Stop antibiotics for now Culture no growth Received some antibiotics last visit however his urine culture showed no growth Tailor antibiotics to culture results (6) Anemia: Code(s): D64.9 - Anemia, unspecified Status: Acute Assessment and Plan: H/H 7.4/23.2 Anemia labs iron 33, TIBC 249, % sat 13, Ferritin 82.80, B12 971, Folate 15.3 Start iron and colace Trend labs Labs in the am DS: Summary Hospital Course Hospital Course: Patient is a 76-year-old male who presented to the emergency room for falling out of his wheelchair. Patient has a history of Alzheimer's dementia, chronic kidney disease, hypertension, hyperlipidemia, diabetes. It was noted when patient arrived to the ED that his blood glucose was 67. Patient was recently discharged from the hospital for the same problem earlier last week. At that time patient's glucose was noted to be 40. BUN creatinine were elevated over his baseline and IV fluids were started. Patient also had a UA sent which did not show any growth. BUN creatinine have returned back to baseline at this time. It was also noted that recently lab tests have been obtained at the group home and were noted to have an elevated BUN and creatinine as well. Patient does have a lack of appetite including hunger or thirst. It seems the only time he eats his when he is set up in bed and told that he had to eat with a lot of irritation and force. Dr. Nguyen was consulted for a possible feeding tube. After long conversation with the family the has decided that the patient would not benefit from the feeding tube in would not like that at this time. Patient has met with hospice and decided the best way to to care for him would be to make him as comfortable as possible. Patient is being discharged back to the group home on hospice at this time. P
--- NOTE | 2021-07-07 09:45 | P.DS_ITS ---
DS: Admitting Diagnosis Discharge Date 07/07/21 0945 Admitting Diagnosis Acute on chronic renal failure/Hypoglycemia DS: Discharge Diagnosis Discharge Diagnosis (1) Onjeo-fa-ebzwfcz kidney injury: Code(s): N17.9 - Acute kidney failure, unspecified; N18.9 - Chronic kidney disease, unspecified Status: Acute Assessment and Plan: * Most likely multifactorial including urinary tract infection and mild dehydration * BUN/Cr is 21/1.70 * Nutritional support probably needs to be addressed * Will get GI involved for a consult for possible feeding tube * Antibiotic therapy has been started for urinary tract infection * DC IV fluids for now * baseline creatinine is 1.5-1.6. * Trend labs * Meeting with hospice today * Probably discharge today or tomorrow on hospice (2) Hypoglycemia: Code(s): E16.2 - Hypoglycemia, unspecified Status: Acute Assessment and Plan: * Glucose is 174 * Per emergency room patient was hypoglycemic upon arrival at 67 * Last admission he came in with a glucose of 40 * This is probably related to lack of intake. * Received 1 amp of D50, and blood glucose levels have improved * check blood glucose levels before meals and at bedtime * sliding scale insulin available. * Patient's metformin has been placed on hold due to the fact the patient's GFR contraindicate metformin at this time * He would probably benefit from just a sliding scale at home (3) Hypomagnesemia: Code(s): E83.42 - Hypomagnesemia Status: Acute Assessment and Plan: * Mg 1.8 * trend labs * Labs in the am (4) Failure to thrive: Status: Acute Assessment and Plan: * Second admission for the same issue of hypoglycemia, dehydration, possible UTI * GI consulted * Might need a G-Tube * Seems GI has talked to his about G-tube * Hospice has also been presented * Consult xerox machine assembler (5) Abnormal urinalysis: Code(s): R82.90 - Unspecified abnormal findings in urine Status: Acute Assessment and Plan: * Urinalysis shows urinary tract infection * Stop antibiotics for now * Culture no growth * Received some antibiotics last visit however his urine culture showed no growth * Tailor antibiotics to culture results (6) Anemia: Code(s): D64.9 - Anemia, unspecified Status: Acute Assessment and Plan: * H/H 7.4/23.2 * Anemia labs iron 33, TIBC 249, % sat 13, Ferritin 82.80, B12 971, Folate 15.3 * Start iron and colace * Trend labs * Labs in the am DS: Summary Hospital Course Hospital Course: Patient is a 76-year-old male who presented to the emergency room for falling out of his wheelchair. Patient has a history of Alzheimer's dementia, chronic kidney disease, hypertension, hyperlipidemia, diabetes. It was noted when patient arrived to the ED that his blood glucose was 67. Patient was recently discharged from the hospital for the same problem earlier last week. At that time patient's glucose was noted to be 40. BUN creatinine were elevated over his baseline and IV fluids were started. Patient also had a UA sent which did not show any growth. BUN creatinine have returned back to baseline at this time. It was also noted that recently lab tests have been obtained at the [facility] and were noted to have an elevated BUN and creatinine as well. Patient does have a lack of appetite including hunger or thirst. It seems the
--- NOTE | 2021-07-07 10:35 | PC.NURSE ---
covid rapid swab sent to lab for analysis.
[2021-07-07 10:40] LABS: EDCOVIDSCREEN Negative (Negative)
--- NOTE | 2021-07-07 11:10 | PC.NURSE ---
report called to [facility], pt to be transported via [facility]. Discharging on [facility].
--- NOTE | 2021-07-07 11:21 | PC.NURSE ---
Report given to Zeenat at [facility].
== END 2021-07-07 12:08 | disposition hospice, home (50) | DRG 683 ==
LOC: ANHED 16:03 → ANH3MEDSUR 18:34
PROVIDERS: Nurse Practitioner Adult Health; Admitting Provider Hospitalist; Emergency Provider Emergency Medicine; PCP Physician Assistant; Visit Provider Nurse Practitioner
DX: N17.9 Acute kidney failure, unspecified (principal); N39.0 Urinary tract infection, site not specified; E46 Unspecified protein-calorie malnutrition; R62.7 Adult failure to thrive; I12.9 Hypertensive chronic kidney disease with stage 1 through stage 4 chronic kidney disease, or unspecified chronic kidney disease; E11.22 Type 2 diabetes mellitus with diabetic chronic kidney disease; N18.9 Chronic kidney disease, unspecified; E86.0 Dehydration; E11.649 Type 2 diabetes mellitus with hypoglycemia without coma; Z20.822 Contact with and (suspected) exposure to COVID-19; E83.42 Hypomagnesemia; Z68.23 Body mass index [BMI] 23.0-23.9, adult; D64.9 Anemia, unspecified; G30.9 Alzheimer's disease, unspecified; F02.80 Dementia in other diseases classified elsewhere, unspecified severity, without behavioral disturbance, psychotic disturbance, mood disturbance, and anxiety; E78.5 Hyperlipidemia, unspecified; Z85.038 Personal history of other malignant neoplasm of large intestine; Z93.3 Colostomy status; Z86.16 Personal history of COVID-19; Z79.82 Long term (current) use of aspirin; Z79.84 Long term (current) use of oral hypoglycemic drugs; F17.210 Nicotine dependence, cigarettes, uncomplicated
CPT/HCPCS: 36415; 70450; 80048; 80053; 81001; 82607; 82728; 82746; 82948; 83540; 83550; 83735; 85025; 87086; 87426; 96361; 96365; 96372; 96374; 96375; 99285; A9270; C9803; G0378; J0360; J0696; J1644; J1815; J3475; J7030; J7050